=== PATIENT | female | born 1975 ===

== ENCOUNTER 2024-11-17 09:15 | Observation (INO) ==
--- NOTE | 2024-11-06 12:49 | Anesthesiology Consultation ---
Date of Service November 06, 2024 Assessment & Plan (1) Encounter for pre-operative examination: Chart Review Chart Review: Acceptable Risk for Surgery and Patient NOT seen in Pre Admission Testing -EKG to be completed AM of surgery (age>50; not ordered preop) Infectious Disease screening: Per PAT nursing assessment on 11/06/24, No known infectious disease contacts in past 10 days or current infectious disease symptoms. No recent travel outside the country. History Surgery Operation Date: 11/17/24 10:20 Proposed Procedures p Robotic Assisted Sacral Colpopexy - Jamie Suarez MD Height/Weight Height: 5 ft 5 in Weight: 104.326 kg Allergies Allergy/AdvReac Type Severity Reaction Status Date / Time morphine AdvReac Intermediate Vomiting Verified 11/06/24 09:32 Medications Home Medications Medication Instructions Recorded Confirmed Last Taken fluticasone propionate 50 2 spray intranasal DAILY PRN Nasal 02/09/19 11/06/24 Unknown mcg/actuation nasal Congestion spray,suspension (Flonase Allergy Relief) levothyroxine 25 mcg tablet 25 mcg PO QAM 02/09/19 11/06/24 Unknown famotidine 20 mg tablet 20 mg PO PM 11/06/24 11/06/24 Unknown ibuprofen 200 mg tablet 200 mg PO Q6H PRN Pain 11/06/24 11/06/24 Unknown pantoprazole 20 mg tablet,delayed 20 mg PO QAM 11/06/24 11/06/24 Unknown release Past Medical History Medical History (Updated 11/06/24 @ 12:57 by Evelyne Harrell PA-C) Congenital prolapsed rectum GERD (gastroesophageal reflux disease) Hiatal hernia Hypothyroidism Obesity Prolapse of vaginal wall Sensorineural hearing loss (SNHL) of left ear Sleep apnea no device > very mild per pt Past Surgical History Surgical History (Updated 11/06/24 @ 12:58 by Evelyne Harrell PA-C) H/O: hysterectomy History of arthroscopy of left shoulder History of colonoscopy History of esophagogastroduodenoscopy (EGD) History of tooth extraction Hx laparoscopic cholecystectomy Hx of hernia repair umblical Hx of unilateral oophorectomy Social History Smoking Status: Never smoker Do You Dip or Chew Tobacco: No Hx Alcohol Use: No Hx Substance Use: No substance use type: does not use Testing Laboratory Results 11/01/24: WBC: 7.71 H/H: 14.1/43.2 PLATELETS: 297 SODIUM: 142 POTASSIUM: 3.9 CHLORIDE: 104 CO2: 24 BUN: 15 CREATININE: 0.8 GLUCOSE: 69 10/04/24: UA: -Nitrite, -LE
--- NOTE | 2024-11-17 05:34 | History & Physical Report ---
Date of Service November 17, 2024 Assessment & Plan (1) Vaginal vault prolapse after hysterectomy: Plan: Reviewed therapy options of expectant management, pelvic floor physical therapy, pessary, or surgery. Since patient had previous vaginal surgery for prolapse that recurred, she elected for robotic sacral colpopexy, possible colporrhaphy, possible sling, and cystoscopy. Risks of infection, bleeding, injury, pain, mesh exposure, urinary incontinence, and retention were reviewed. All questions answered. Informed consent confirmed. Present on Admission?: Yes Admission and Anticipated Discharge Date Admission Date: 11/17/2024 Anticipated date of discharge: 11/18/24 History of Present Illness Chief Complaint: vaginal prolapse Primary Care Provider: Diana Winslow PA-C Myriam Torres is a 49 year old female who complains of prolapse. Referred by Anjana Armstrong PA-C. Two months ago, on feet all day when baking cookies. Noted a bulge and something was out. Never noticed before. Now feels bulge all the time, is uncomfortable to sit. Patient is s/p TVH with possible anterior colporrhaphy for prolapse (noel 2012, no records available). Has also tried a pessary in the past for prolapse during a and does not wish to try again. Allergies Allergy/AdvReac Type Severity Reaction Status Date / Time morphine AdvReac Intermediate Vomiting Verified 11/17/24 09:38 Home Medications Medication Instructions Recorded Confirmed Type fluticasone propionate 50 2 spray intranasal DAILY PRN Nasal 02/09/19 11/17/24 History mcg/actuation nasal Congestion spray,suspension (Flonase Allergy Relief) levothyroxine 25 mcg tablet 25 mcg PO QAM 02/09/19 11/17/24 History famotidine 20 mg tablet 20 mg PO PM 11/06/24 11/17/24 History ibuprofen 200 mg tablet 200 mg PO Q6H PRN Pain 11/06/24 11/17/24 History pantoprazole 20 mg tablet,delayed 20 mg PO QAM 11/06/24 11/17/24 History release Past Med/Surg History Problem List Vaginal vault prolapse after hysterectomy Encounter for pre-operative examination Medical History Obesity 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 Hiatal hernia GERD (gastroesophageal reflux disease) Sleep apnea no device > very mild per pt Sensorineural hearing loss (SNHL) of left ear Hypothyroidism Surgical History History of arthroscopy of left shoulder Hx laparoscopic cholecystectomy H/O: hysterectomy Hx of unilateral oophorectomy History of colonoscopy History of esophagogastroduodenoscopy (EGD) History of tooth extraction Hx of hernia repair umblical Social History Smoking Status: Never smoker Second Hand Exposure: No; Do You Dip or Chew Tobacco: No; Tobacco Cessation Education Requested by Patient: No Hx Alcohol Use: No Hx Substance Use: No Preferred Language: Zambian Communication Ability: Effective 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 Beliefs That Will Affect Care: None Current Living Situation: Spouse Other Information That Helps Us Care for You: No Feels Safe at Home: Yes Safety Concerns: Feels Safe At This Time Assistive Devices: Denture - Upper and Glasses Review of Systems Review of Systems: All systems reviewed & are unremarkable except as noted in HPI & below Physical Exam Constitutional: WD/WN, vitals as above Eyes: PERRL, conjunctivae normal, anicteric sclerae ENMT: external ear and nose normal, oropharynx normal Neck: trachea midline, no thyromegaly Respiratory: normal respiratory effort, lungs clear to auscultation Cardiovascular: RRR, no murmur, no edema Gastrointestinal (Abdomen): normal bowel sounds, soft, nontender, no hepatosplenomegaly Musculoskeletal: no cyanosis or clubbing, extremities motor strength 5/5 Skin: no rashes, warm and dry Psychiatric: A+Ox3, euthymic affect Results & Data Results & Data Laboratory Results 11/01/2024 labs Creatinine 0.8 Hgb 14.1 PLT 297 Code Status & VTE Plan VTE Prophylaxis Plan VTE Prophylaxis will be ordered: Yes
[~2024-11-17 09:15] MED LIST: DEXAMETHASONE SOD INJ 4 MG/ML VIAL ONE; KETOROLAC 30 MG/ML VIAL ONE; LIDOCAINE 2% 2 ML VIAL/AMP(20MG/ML) INFIL ONE; MIDAZOLAM HCL 1 MG/ML 2ML VIAL ONE; ONDANSETRON INJ 2 MG/ML 2 ML VIAL ONE; PROPOFOL IV EMULSION 10 MG/ML 20 ML VIAL IV ONE; ROCURONIUM BROMIDE 10 MG/ML 5 ML VIAL IV ONE; fentaNYL citrate PF 100 MCG/2 ML VIAL ONE
[2024-11-17] MEDS ORDERED: HYDROmorphone INJ 2 MG/ML SYR/VIAL IV PRN (09:41)
[2024-11-17] MEDS ORDERED: ATROPINE SULFATE 0.1 MG/ML 10ML SYR IV PRN (09:41)
[2024-11-17] MEDS ORDERED: ePHEDrine sulfate 50 MG/ML AMP IV PRN (09:41)
[2024-11-17] MEDS: LR 15ML/HR IV SCH (10:02)
[2024-11-17] MEDS: metroNIDAZOLE 500 MG/100 ML BAG IV SCH (10:27)
[2024-11-17] MEDS: SCOPOLAMINE 1 MG/72 HR TDSY PATCH TD STA (10:35)
--- NOTE | 2024-11-17 10:49 | Electrocardiogram Report ---
Test Reason : Blood Pressure : */* mmHG Vent. Rate : 74 BPM Atrial Rate : 74 BPM P-R Int : 182 ms QRS Dur : 74 ms QT Int : 392 ms P-R-T Axes : 62 44 60 degrees QTcB Int : 435 ms Normal sinus rhythm Low voltage QRS Borderline ECG No previous ECGs available Confirmed by Uziel Rutherford ([id number]) on 11/17/2024 10:48:54 AM Referred By: Jamie Suarez Confirmed By: Uziel Rutherford
[2024-11-17] MEDS: ceFAZolin 2000MG 2,000 MG/15 ML SYR IV SCH (11:23)
[2024-11-17] MEDS ORDERED: PHENYLEPHRINE 100MCG/ML 5ML SYR ONE (11:53)
[2024-11-17] MEDS ORDERED: SUGAMMADEX SODIUM 200 MG/2 ML VIAL IV ONE (12:13)
[2024-11-17] MEDS ORDERED: ROCURONIUM BROMIDE 10 MG/ML 5 ML VIAL IV ONE (12:28)
[2024-11-17] MEDS ORDERED: ePHEDrine sulfate 50 MG/5 ML SYR ONE (12:28)
[2024-11-17] MEDS ORDERED: fentaNYL citrate PF 100 MCG/2 ML VIAL ONE (13:27)
[2024-11-17] MEDS: LIDOCAINE 1%/EPINEPHRINE 1:100,000 50 ML VIAL ONE (13:28)
[2024-11-17] MEDS: PREMARIN VAG CRM 14 APPLN/30 GM TUBE ONE (13:29)
[2024-11-17] MEDS: BUPIVACAINE LIPOSOME 1.3% 266 MG/20 ML VIAL ONE (14:00)
[2024-11-17] MEDS: BUPIVACAINE 0.5 % 5 MG/1 ML MPF 30ML VIAL ONE (14:01)
[2024-11-17] MEDS ORDERED: ONDANSETRON INJ 2 MG/ML 2 ML VIAL IV PRN (14:16)
[2024-11-17] MEDS ORDERED: oxyCODONE/ACETAMINOPHEN 5mg/325mg TAB PO PRN (14:16)
[2024-11-17] MEDS ORDERED: ACETAMINOPHEN 325 MG TAB PO PRN (14:16)
--- NOTE | 2024-11-17 14:23 | Operative Report ---
Post Operative Report Pre & Post Diagnosis Operation Date: 11/17/24 10:50 Pre-Op Diagnosis: Vaginal vault prolapse after hysterectomy, Cystocele, Rectocele Post-Op Diagnosis: Vaginal vault prolapse after hysterectomy, Cystocele, Rectocele, DIMITRY, Urethral hypermobility I identified the patient and participated in the time-out.: Yes Procedure Operation Date: 11/17/24 10:50 Actual Procedures p Robotic Assisted Sacral Colpopexy, Posterior colporrhaphy, Sling, and Cystoscopy - Jamie Suarez MD Surgeon Jamie Suarez MD Sustainable Design Consultant Gia Saba PA-C Estimated Blood Loss 70 Findings See Below Cystocele, Rectocele, Vaginal Vault prolapse. Normal appearing Left Ovary, Surgically absent Right ovary. Omental adhesions to the umbilicus. Normal cystoscopy with excellent efflux of ureters bilaterally Fluids crystalloid Specimens vaginal mucosa Drains Ta catheter Anesthesia Type General Complications none Disposition Accompanied Patient To Recovery: Yes Disposition: Recovery Room Indications Symptomatic prolapse Description of Procedure Myriam Torres was identified in the preoperative area. The indications, alternatives, risks, and benefits of the surgical procedure were reviewed with the patient and her . Risks of infection, bleeding, injury, pain, mesh exposure, urinary retention, incontinence were reviewed. Alternatives of pessary, expectant management, and transvaginal surgery were reviewed. All questions answered. Informed consent confirmed. Patient was taken to the operating room and general anesthesia was administered by anesthesia service. Patient was placed in dorsal lithotomy position using Stanislav stirrups. Patient was prepped and draped in the usual sterile fashion. Time out was performed. A Ta catheter was placed for clear urine. A bulb syringe attached to a Hulk Tenaculum was placed in the vagina to elevate the vaginal vault. Because of a previous umbilical hernia repair with mesh, an 8 mm incision was made in the left upper quadrant. An 8 mm trocar with Optiview was placed through the incision and advanced with direct visualization through the fascia, peritoneum, and into the abdominal cavity. The abdomen was insufflated with CO2 gas. Inspection of the abdomen revealed omental adhesions to the umbilicus. On the left an 8 mm trocar were placed, on the right two 8 mm trocars were placed, all under direct visualization. The harmonic scalpel was used to lyse the adhesions with good hemostasis. The umbilical mesh border was well visualized. An 8 mm skin incision was above the umbilicus. An 8 mm trocar was placed through the supra-umbilical incision under direct visualization with attention to avoid the umbilical mesh. The patient was placed in moderate Trendelenburg position. The robot was docked. The ureters, bladder, and rectum was well visualized. The bladder was dissected off the anterior vaginal wall for 6 cm distally. The rectum was dissected off the posterior vaginal wall for 8 cm distally. The peritoneum over the sacrum was incised. The peritoneal incision was extended along the right angeles-colic gutter with excellent visualization of the right ureter and rectum. The Y mesh was then secured to the anterior and posterior vaginal beth with 2-0 V-lock suture. The tail end of the Y mesh was fixed to the anterior longitudinal ligament just below the sacral promontory with two interrupted sutures of CV-0 Muir-aron. The peritoneum was closed over the Y mesh with 2-0 V-lock suture. Excellent hemostasis was confirmed. The robot was undocked. The fascia at the umbilical incision was closed with 0 Vicryl using the chilango brandt fascial closure system. The trocars were removed and the pneumoperitoneum was allowed to recede. The incisions were closed with 4-0 Monocryl in a subcuticular fashion and dressed with surgical glue. Vaginally, excellent support of the anterior vaginal wall, apex, and proximal posterior vaginal wall wall was observed. However a distal rectocele remained. The vaginal mucosa overlying the distal rectocele was sharply dissected off the rectocele. The rectovaginal fascia was then imbricated with interrupted sutures of 2-0 Vicryl. A second imbrication layer was performed with 2-0 Vicryl in a mattress fashion. The excess vaginal mucosa was trimmed and sent to pathology as specimen. The incision was closed with 2-0 Vicryl in a running fasion. Cystoscopy was performed with a 17 cay[place] islander 70 deg cystoscope with 250 ml of irrigation fluid. Inspection of the bladder dome, trigone, and urethra did not reveal any lesions. Excellent efflux of ureters were demonstrated bilaterally. The cystoscope was removed and Crede maneuver confirmed urethral hypermobility and DIMITRY was demonstrated. The Ta was placed. The vaginal mucosa over the urethra was grasped with two Allis clamps and infiltrated with 0.5% lidocaine with epinephrine. A 1 cm incision was made with the scalpel. The periurethral tissue was dissected toward the pubic rami bilaterally. The Solyx sling was assembled. The needle introducer was placed through the incision advanced beyond the right pubic rami and inserted into the obturator internus muscle. The second sling introducer was placed thorough the incision and advanced beyond the left pubic rami and inserted into the obturator internus muscle. Cystoscopy was repeated, and no lesions were observed. The sling was appropriately tensioned. A Ta catheter was placed. The incision was closed with 2-0 Vicryl in a running fashion. Long acting bupivacaine was infiltrated into the obturator spaces. The vagina was irrigated and vaginal packing with estrogen cream was applied. A rectal exam was normal. All sponge lap and needle counts were correct x 2. Patient tolerated the procedure well, was extubated, awakened, and sent to recovery in good condition. . I attest to the content of the Intraoperative Record and any orders documented therein. Any exceptions are noted below. No qualified resident was available. Gia Saba PA-C, was necessary to perform the procedure as she provided assistance with patient positioning, draping,robotic docking and instrument exchange, retraction, irrigation, and wound closure
[2024-11-17] MEDS: HYDROmorphone INJ 1 MG/ML SYRINGE IV PRN (14:34)
[2024-11-17] MEDS: ONDANSETRON INJ 2 MG/ML 2 ML VIAL IV PRN (14:35)
[2024-11-17] MEDS: PROMETHAZINE HCL 6.25 MG in SODIUM CHLORIDE 0.9% 50 ML IV PRN (14:54)
[2024-11-17] MEDS: PROMETHAZINE HCL INJ 25 MG/ML 1 ML VIAL ONE (16:19)
[2024-11-17] MEDS: SODIUM CHLORIDE 0.9% 50 ML BAG ONE (16:20)
[2024-11-17] MEDS: CHECK SCOPOLAMINE PATCH PLACEMENT SCH (16:21)
--- NOTE | 2024-11-17 17:49 | Anesthesiology Progress Note ---
Date of Service November 17, 2024 Anesthesia Post Procedure Vital Signs Vital Signs: Temp Pulse Pulse Resp BP Pulse Ox O2 Del Method 11/17/24 15:25 83 14 124/84 100 Room Air 11/17/24 15:15 97.7 F 81 12 138/91 98 Room Air 11/17/24 15:05 82 12 130/82 99 Room Air 11/17/24 14:55 78 12 129/92 100 Room Air 11/17/24 14:45 83 13 130/83 98 Room Air 11/17/24 14:35 85 13 119/94 100 Room Air 11/17/24 14:25 92 H 20 141/78 H 100 Oxymask 11/17/24 14:17 97.9 F 92 H 18 131/95 98 Oxymask 11/17/24 10:03 97.7 F 77 18 137/91 99 Room Air O2 Flow Rate 11/17/24 15:25 11/17/24 15:15 11/17/24 15:05 11/17/24 14:55 11/17/24 14:45 11/17/24 14:35 11/17/24 14:25 5 11/17/24 14:17 5 11/17/24 10:03 Pain Intensity Abdomen: Pain Intensity: 1 Transfer of Care Handoff Completed per policy Notes Mental Status: alert / awake / arousable and participated in evaluation Patient Amnestic to Procedure: Yes Nausea / Vomiting: adequately controlled Pain: adequately controlled Airway Patency, RR, SpO2: stable & adequate BP & HR: stable & adequate Hydration State: stable & adequate Anesthetic Complications: no major complications apparent and Pt Satisfied with anesthetic care
[2024-11-17] MEDS: oxyCODONE/ACETAMINOPHEN 5mg/325mg TAB PO PRN (17:55)
--- OUTSIDE RECORDS SUMMARY | 2024-11-17 20:24 | External Medical Summary | Summary of Care ---
Author Name Unknown Organization [facility] Address [address] [place] [address] Phone [phone] Care Team Providers Care Internal Communications Writer Name Role Phone David Whitt MD Primary Care [facility] Reason for Referral * Evaluate & Treat - Unlimited Visits (Within 10 days (routine)) - Authorized Specialty Diagnoses / Procedures Referred By Pierre huizar Referred To Contact FLOOR COVERING LAYER - Urogynecology / Gynecology Urology Diagnoses Rectocele Anjana Logan PA-C [address] [place] [phone] Phone: tel: fax: Referral ID Status Reason Start Date Expiration Date Visits Requested Visits Authorized [id number] Authorized Specialty Services Required 09/21/[phone] Question Answer Referral Priority Within 10 days (routine) Where should this appointment be scheduled? [facility] What condition is the patient being referred for? Prolapse (dropped bladder, uterus, etc) Comments Rectocele. History of hysterectomy and bladder repair in the past. 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 180 Tablet 3 04/28/2024 11:55 AM EDT 4 Active Levothyroxine Sodium 50 MCG Oral Tablet (Levoxyl)Indication s:Acquired hypothyroidism Take 1 Tablet by mouth daily first thing in the morning. 90 Tablet 3 07/18/2024 12:25 PM EST 4 Active Pantoprazole Sodium 20 MG Oral Tablet Delayed Release (Protonix)Indicatio ns:Gastroesophageal reflux disease without esophagitis Take 1 Tablet by mouth daily as needed for Heartburn. 90 Tablet 3 09/19/2024 7:35 AM EDT 5 Active documented as of this encounter (statuses as of 09/30/2024) Active Problems Problem Noted Date Diagnosed Date Hypoglycemia 05/24/2024 Acquired hypothyroidism 07/26/2023 Hiatal hernia 06/16/2023 Witnessed episode of apnea 06/16/2023 Loud snoring 06/16/2023 Class 2 obesity with body ma ss index (BMI) of 35 to 39.9 without comorbidity 08/01/2022 Sudden-onset sensorineural hearing loss 02/07/20 19 Pulsatile tinnitus 02/06/2019 Thyromegaly 09/20/2014 Goiter 09/17/2014 documented as of this encounter (statuses as of 09/30/2024) Resolved Problems Problem Noted Date Diagnosed Date Resolved Date PARONYCHIA TOE, LEFT GREAT 02/04/2010 1 S/P EXCSION INGROWING NAIL 02/04/2010 1 documented as of this encounter (statuses as of 09/30/2024) Immunizations Name Administration Dates Next Due TDAP, Age 7 and older, IM (Adacel) 05/24/2024, documented as of this encounter Social History Tobacco Use Types Packs/Day Years Used Date Smoking Tobacco: Never Smokeless Tobacco: Never Alcohol Use Standard Drinks/Week Comments No 0 (1 standard drink = 0.6 oz pur e alcohol) PHQ-2 Answer Date Recorded PHQ Adult Total Score 0 05/24/2024 Hunger Vital Sign Answer Date Recorded Within the past 12 months, y ou worried that your food would run out before you got the money to buy more. Never true 11/25/19 24 Within the past 12 months, t he food you bought just didn't last and you didn't have money to get more. Never true 11/25/2023 Childcare Answer Date Recorded Do you feel overwhelmed with taking care of a child, family member or friend? No 11/25/2023 Does your family need help f inding childcare? (Household - for ages 0-17 years) Not on file 11/25/2023 Clothing Answer Date Recorded Have you been unable to get clothing when it was really needed? No 11/25/2023 Is your family able to get c lothes or diapers when needed? (Household - for ages 0-17 years) Not on file 11/25/2023 Personal Safety Answer Date Recorded Do you feel unsafe or have concerns for your saf ety? No 11/25/2023 Do you have concerns for you r family's safety? (Household - for ages 0-17 years) Not on file 11/25/2023 Utilities Answer Date Recorded Do you have trouble paying y our heating, water, or electric bill? No 11/25/2023 Is your family able to pay t he heat, water, or electric bill? (Household - for ages 0-17 years) Not on file 11/25/2023 Does your family have access to good internet? (Household - for ages 0-17 years) Not on file 11/25/2023 Employment Status Answer Date Recorded Are you unemployed or without regular income? No 11/25/2023 Does the household have a re gular source of income? (Household - for ages 0-17 years) Not on file 11/25/2023 Social Connections Answer Date Recorded How often do you feel lonely or isolated from th ose around you? Never 11/25/2023 Financial Resource Strain Answer Date R ecorded Do you have any trouble payi ng for your medications, or do you think you might in the future? No 11/25/2023 Does your family have troubl e paying for medicine? (Household - for ages 0-17 years) Not on file 11/25/2023 Transportation Needs Answer Date Record ed READ ONLY Do you have troubl e getting a ride to medical visits or work? Never True 11/25/2023 Does your family have a hard time getting a ride to doctors visits? (Household - for ages 0-17 years) Not on file 11/25/2023 Has lack of transportation k ept you from medical appointments, meetings, work, or from getting things needed for daily living? Check all that apply. (Adult - for ages 18 years and over) Not on file 11/25/2023 Do you (or your family) have trouble finding or paying for a ride (transportation)? (Household - for ages 0-17 years) Not on file 11/25/2023 Housing Stability Answer Date Recorded Do you currently live in a s helter or have no steady place to sleep at night? No 11/25/2023 READ ONLY Do you think you a re at risk of becoming homeless? No 11/25/2023 Does your family worry about paying for your home or becoming homeless? (Household - for ages 0-17 years) Not on file 0 11/25/2023 Are you homeless or worried that you might be in the future? (Adult - for ages 18 years and over) Not on file Are you (or your family) terence eless or worried that you might be in the future? (Household - for ages 0-17 years) Not on file Food Insecurity Answer Date Recorded Do you need food for this week? No 11/25/2023 Are you able to get enough f ood for your family? (Household - for ages 0-17 years) Not on file 11/25/2023 Does your family need food t his week? (Household - for ages 0-17 years) Not on file 11/25/2023 Do you always have enough fo od for your family? (Household - for ages 0-17 years) Not on file 11/25/2023 Food Insecurity Answer Date Recorded Within the past 12 months, y ou worried that your food would run out before you got the money to buy more. Never true 11/25/19 24 Within the past 12 months, t he food you bought just didn't last and you didn't have money to get more. Never true 11/25/2023 Do you need food for this week? No 11/25/2023 Comments No Sex and Gender Information Value Date Recorded Sex Assigned at Female 08/01/2022 8:32 AM EST Legal Sex Female 6:43 AM EST Gender Identity Female 08/01/2022 8:32 AM EST Sexual Orientation Straight 08/01/2022 8: 32 AM EST documented as of this encounter Last Filed Vital Signs Vital Sign Reading Time Taken Comments Blood Pressure 124/78 09/21/2024 9:59 AM EDT Pulse - - Temperature - - Respiratory Rate - - Oxygen Saturation - - Inhaled Oxygen Concentration - - Weight 105.2 kg (231 lb 14.4 oz) 09/21/2024 9:59 AM EDT Height - - Body Mass Index 38.59 07/26/2024 8:56 AM EST documented in this encounter Progress Notes * Anjana Logan PA-C - 09/21/2024 10:07 AM EDT Chief Complaint: The patient is a 49 year old female here for vaginal pressure. History of Present Illness: Patient has some vaginal pressure and fullness in the vagina. Patient reports that symptoms startedon Wednesday. Patient reports that she was baking cookies all day. Patient denies abdominal pain. Patient has some vaginal discomfort. Patient denies vaginal discharge, odor itching. Patient reports that she is urinating a little more frequently, but reports that she drinks a lot of water. Patient denies urinary incontinence. Patient denies dysuria. Patient reports partial hysterectomy about 11 years ago. Patient reports that just one ovary was left. Patient reports that she had a bladder procedure at that time as well. No history of abnormal pap smears. Medications: Current Outpatient Medications Medication Sig Dispense Refill Famotidine 20 MG Oral Tablet (Pepcid) Take 1 Tablet by mouth 2 times a day as needed for Heartburn.180 Tablet 3 Levothyroxine Sodium 50 MCG Oral Tablet (Levoxyl) Take 1 Tablet by mouth daily first thing in the morning. 90 Tablet 3 Pantoprazole Sodium 20 MG Oral Tablet Delayed Release (Protonix) Take 1 Tablet by mouth daily as needed for Heartburn. 90 Tablet 3 No current facility-administered medications for this visit. Allergies: Review of patient's allergies indicates: No Known Allergies Past Medical History: Diagnosis Date S/P EXCSION INGROWING NAIL 02/04/2010 Varicella without complication Chicken Pox Past Surgical History: Procedure Laterality Date COLONOSCOPY, DIAGNOSTIC (RECTUM) 09/01/2023 biopsies normal/COLONOSCOPY FLEXIBLE PROXIMAL DIAGNOSTIC performed by Tara Mathur MD at ENDOSCOPY [facility] EGD, FLEXIBLE, DIAGNOSTIC 11/13/2015 Jay Jay cuevas, HH, gastric polyps/ESOPHAGOGASTRODUODENOSCOPY (EGD), FLEXIBLE, TRANSORAL, DIAGNOSTICperformed by Cole Latham MD at ENDOSCOPY [facility] EGD, FLEXIBLE, DIAGNOSTIC 09/01/2023 biopsies normal/ESOPHAGOGASTRODUODENOSCOPY (EGD), FLEXIBLE, TRANSORAL, DIAGNOSTIC performed by Tara Mathur MD at ENDOSCOPY [facility] LAPAROSCOPY; CHOLECYSTECTOMY Cholecystectomy, Laproscopic REMOVAL OF OVARY(S) Oopherectomy,Uni/ SHOULDER ARTHROSCOPY SURGERY Left 11/18/2020 ARTHROSCOPY SHOULDER DISTAL CLAVICLE RESECTION performed by Luis Hyatt MD at OR [facility] VAGINAL HYSTERECTOMY Hysterectomy Vaginal Family History Problem Relation Name Age of Onset Cancer Mother colon Heart Disorder Father Hypertension Father Asthma None Diabetes None Hypertension Brother Renal Hx None Stroke None Thyroid Disorder None Review of Systems: Denies abdominal pain. Positive for vaginal pressure. Denies vaginal discharge, odor, or itching. Positive for vaginal discomfort. Denies dysuria. Positive for urinary frequency and urinary urgency. OBJECTIVE: BP 124/78 | Wt 105.2 kg (231 lb 14.4 oz) | BMI 38.59 kg/m² | BSA 2.2 m² General: awake, alert, and oriented x 3, normal affect, no acute distress External Genitalia/Vulva: anatomy is normal, no significant redness of labia, no discharge on vulvar tissues, ulcers are absent, no condylomatous lesions Vagina: vaginal tissues are not inflamed, normal color and texture, no abnormal vaginal discharge. Rectocele. Cervix: absent Uterus: absent Adnexa: no masses, non-tender bilaterally Roll Contour Grinder Documentation Patient offered clamp operator and declined. ASSESSMENT/PLAN: Rectocele (Primary) - UROGYNECOLOGY CLINIC REFERRAL OP (FEMALE ONLY) Recommended referral to Urogynecology for further evaluation and management. Patient agrees. Referral made. Counseled patient on precautions and when to contact the office. Answered patient's questions. Return to the office as needed. 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 [address] [place] [address] Jamie Suarez MD [address] [place] [address] 05/28/2025 9:00 AM EST Office Visit [address] [phone] La Sheth MD [address] [place] [phone] Scheduled Referrals Name Type Priority Associated Diagnoses Order Schedule UROGYNECOLOGY CLINIC REFERRAL OP (FEMALE ONLY) Referral Within 10 days (routine) Rectocele Ordered: 09/21/2024 Health Maintenance Due Date Last Done Comments Hepatitis B Vaccine (1 of 3 - 19+ 3-dose series) 1992 Mammogram 08/08/2015 08/08/2014 Cologuard 2018 Sigmoidoscopy 2018 Pneumococcal Vaccine: 50+ Years (1 of 1 - PCV) 2023 Zoster Vaccines (1 of 2) 2023 COVID-19 Vaccine ( season) 2024 Fecal Occult Blood Test 03/05/2024 03/05/2023, 03/05 Influenza Vaccine (FLU shot) (#1) 2024 TSH 05/17/2025 05/17/2024, 06/04, 08/01/2022, Additional history exists Depression Screening 05/24/2025 05/24/2024 Diabetes Screening 05/17/2027 05/17/2024, 1 07/17/2023, 2023, Additional history exists Lipid Panel 11/25/2027 11/24/2022, 11/03, 12/16/2020, Additional history exists Colonoscopy 09/01/2033 09/01/2023, 09/01/2023 Colorectal Cancer Screening 09/01/2033 DTap/Tdap Vaccines (3 - Td or Tdap) 05/24/2034 05/24/2024, 04/11/2010 HPV (Gardasil) Vaccine Aged Out No lo nger eligible based on patient's age to complete this topic MENINGOCOCCAL (MENACTRA/MENVEO) Aged Out No longer eligible based on patient's age to complete this topic Meningitis B Vaccine (Bexsero/Trumemba) Aged Out No longer eligible based on patient's age to complete this topic documented as of this encounter Medical Devices Not on filedocumented as of this encounter Visit Diagnoses Diagnosis Rectocele- Primary documented in this encounter Advance Directives * Full Code (Latest Code Status on File) Date Activated Date Inactivated Comments 11/18/2020 12:47 PM 11/18/2020 6:29 PM This order reflects the patients wishes and were consensually agreed upon. Care Teams Internal Communications Writer Relationship Specialty Start Date End Date David Whitt MD [address] [place] [phone] PCP - General Family Medicine 03/05/23 documented as of this encounter"
--- OUTSIDE RECORDS SUMMARY | 2024-11-17 20:24 | External Medical Summary | Summary of Care ---
Author Name Unknown Organization [facility] Address [address] [place] [address] Phone [phone] Care Team Providers Care Harvesting Supervisor Name Role Phone David Whitt MD [facility] Encounter Details Date Type Department Care Team (Late st Contact Info) Description 07/25/2024 Population Health External Data Unspecified Department Allergies No known active allergiesdocumented as of this encounter (statuses as of 07/25/2024) Medications Famotidine 20 MG Oral Tablet (Pepcid)Indications :Gastroesophageal reflux disease without esophagitis Take 1 Tablet by mouth 2 times a day as needed for Heartburn. 180 Tablet 3 04/28/2024 11:55 AM EDT 4 Active Pantoprazole Sodium 20 MG Oral Tablet Delayed Release (Protonix)Indicatio ns:Gastroesophageal reflux disease without esophagitis Take 1 Tablet by mouth daily as needed for Heartburn. 90 Tablet 1 06/27/2024 8:44 AM EST 4 Active Levothyroxine Sodium 50 MCG Oral Tablet (Levoxyl)Indication s:Acquired hypothyroidism Take 1 Tablet by mouth daily first thing in the morning. 90 Tablet 3 07/18/2024 12:25 PM EST 4 Active documented as of this encounter (statuses as of 07/25/2024) Active Problems Problem Noted Date Diagnosed Date Hypoglycemia 05/24/2024 Acquired hypothyroidism 07/26/2023 Hiatal hernia 06/16/2023 Witnessed episode of apnea 06/16/2023 Loud snoring 06/16/2023 Class 2 obesity with body ma ss index (BMI) of 35 to 39.9 without comorbidity 08/01/2022 Sudden-onset sensorineural hearing loss 02/07/20 19 Pulsatile tinnitus 02/06/2019 Thyromegaly 09/20/2014 Goiter 09/17/2014 documented as of this encounter (statuses as of 07/25/2024) Resolved Problems Problem Noted Date Diagnosed Date Resolved Date PARONYCHIA TOE, LEFT GREAT 02/04/2010 1 S/P EXCSION INGROWING NAIL 02/04/2010 1 documented as of this encounter (statuses as of 07/25/2024) Immunizations Name Administration Dates Next Due TDAP, [...] ages 0-17 years) Not on file 11/25/2023 Comments No Sex and Gender Information Value Date Recorded Sex Assigned at Female 08/01/2022 8:32 AM EST Legal Sex Female 6:43 AM EST Gender Identity Female 08/01/2022 8:32 AM EST Sexual Orientation Straight 08/01/2022 8: 32 AM EST documented as of this encounter Plan of Treatment Upcoming Encounters Date Type Department Care Team (Late st Contact Info) Description 07/26/2024 9:00 AM EST Office Visit Sleep Disorders Ctr [facility] [address] [place] [phone] Grace Marie CRNP [address] [place] [address] 05/28/2025 9:00 AM EST Office Visit Family [address] [phone] La Sheth MD [address] [place] [phone] Health Maintenance Due Date Last Done Comments Hepatitis B Vaccine (1 of 3 - 19+ 3-dose series) 1992 Mammogram 08/08/2015 08/08/2014 Cologuard 2018 Sigmoidoscopy 2018 Pneumococcal Vaccine: 50+ Years (1 of 1 - PCV) 2023 Zoster Vaccines (1 of 2) 2023 COVID-19 Vaccine ( - season) 2024 Fecal Occult Blood Test 03/05/2024 [...] Not on filedocumented as of this encounter Advance Directives * Full Code (Latest Code Status on File) Date Activated Date Inactivated Comments 11/18/2020 12:47 PM 11/18/2020 6:29 PM This order reflects the patients wishes and were consensually agreed upon. Care Teams Harvesting Supervisor Relationship Specialty Start Date End Date David Whitt MD [address] [place] [phone] PCP - General Family Medicine 03/05/23 documented as of this encounter
--- OUTSIDE RECORDS SUMMARY | 2024-11-17 20:24 | External Medical Summary | Summary of Care ---
Author Name Unknown Organization [facility] Address [address] [place] [address] Phone [phone] Care Team Providers Care Safety Teacher Name Role Phone David Whitt MD Primary Care P [email or web address] Reason for Visit * Reason Comments Pain Bilateral foot pain x 6 months-- can move between heel and side of foot. ++ tingling and burning sensations. Using Tylenol and Ibuprofen. Encounter Details Date Type Department Care Team ([facility] Contact Info) Description 09/15/2024 1:40 PM EDT Office Visit [address] [phone] June Watkins MD [address] [place] [id number] Pain in both feet*; Gastroesophageal reflux disease without esophagitis; Varicose veins of both lower extremities, unspecified whether complicated; Plantar fasciitis; BMI 38.0-38.9,adult Allergies No known active allergiesdocumented as of this encounter (statuses as of 09/15/2024) Medications Famotidine 20 MG Oral Tablet (Pepcid)Indication s:Gastroesophageal reflux disease without esophagitis Take 1 Tablet by mouth 2 times a day as needed for Heartburn. 180 Tablet 3 04/28/2024 11:55 AM EDT 4 Active Levothyroxine Sodium 50 MCG Oral Tablet (Levoxyl)Indicatio ns:Acquired hypothyroidism Take 1 Tablet by mouth daily first thing in the morning. 90 Tablet 3 07/18/2024 12:25 PM EST 4 Active Pantoprazole Sodium 20 MG Oral Tablet Delayed Release (Protonix)Indicati ons:Gastroesophage al reflux disease without esophagitis Take 1 Tablet by mouth daily as needed for Heartburn. 90 Tablet 3 5 Active Pantoprazole Sodium 20 MG Oral Tablet Delayed Release (Protonix)Indicati ons:Gastroesophage al reflux disease without esophagitis Take 1 Tablet by mouth daily as needed for Heartburn. 90 Tablet 1 06/27/2024 8:44 AM EST 4 09/16/19 25 Discontinu ed(Refill) documented as of this encounter (statuses as of 09/15/2024) Active Problems Problem Noted Date Diagnosed Date Hypoglycemia 05/24/2024 Acquired hypothyroidism 07/26/2023 Hiatal hernia 06/16/2023 Witnessed episode of apnea 06/16/2023 Loud snoring 06/16/2023 Class 2 obesity with body ma ss index (BMI) of 35 to 39.9 without comorbidity 08/01/2022 Sudden-onset sensorineural hearing loss 02/07/20 Pulsatile tinnitus 02/06/2019 Thyromegaly 09/20/2014 Goiter 09/17/2014 documented as of this encounter (statuses as of 09/15/2024) Resolved Problems Problem Noted Date Diagnosed Date Resolved Date PARONYCHIA TOE, LEFT GREAT 02/04/2010 1 S/P EXCSION INGROWING NAIL 02/04/2010 1 documented as of this encounter (statuses as of 09/15/2024) Immunizations Name Administration Dates Next Due TDAP, Age 7 and older, IM (Adacel) 05/24/2024, documented as of this encounter Social History Tobacco Use Types Packs/Day Years Used Date Smoking Tobacco: Never Smokeless Tobacco: Never Tobacco Cessation:Counseling Given: Not Answered Alcohol Use Standard Drinks/Week Comments No 0 [...] Sign Reading Time Taken Comments Blood Pressure 126/87 09/15/2024 1:48 PM EDT Pulse 80 09/15/2024 1:48 PM EDT Temperature 36.2 °C (97.2 °F) 09/15/2024 1:48 PM ED T Respiratory Rate 18 09/15/2024 1:48 PM EDT Oxygen Saturation - - Inhaled Oxygen Concentration - - Weight 105.8 kg (233 lb 3.2 oz) 09/15/2024 1:48 PM EDT Height - - Body Mass Index 38.81 07/26/2024 8:56 AM EST documented in this encounter Progress Notes * June Watkins MD - 09/15/2024 1:57 PM EDT Images from the original note were not included. Subjective Myriam Torres is a 49 year old female that presents for Pain (Bilateral foot pain x 6 months-- can move between heel and side of foot. ++ tingling and burning sensations. /Using Tylenol and Ibuprofen. ) Acute visit. Patient reports BL feet pain. Onset 5-6 months ago. No trauma. No change in physical activity level. Patient stands/walks a lot. Pain is almost constant, worse in the evening +/- tingling/burning Pain is better with rest. No redness/warmth/swelling Heel pain +/- No medication used. Other: needs medication refill Objective BP 126/87 | Pulse 80 | Temp 97.2 °F (36.2 °C) (Infrared ) | Resp 18 | Wt 233 lb 3.2 oz (105.8 kg)| BMI 38.81 kg/m² | BSA 2.2 m² BP Readings from Last 3 Encounters: 09/15/24 126/87 07/26/24 120/84 05/24/24 110/72 Wt Readings from Last 3 Encounters: 09/15/24 233 lb 3.2 oz (105.8 kg) 07/26/24 232 lb (105.2 kg) 05/24/24 231 lb 4.8 oz (104.9 kg) BMI Readings from Last 3 Encounters: 09/15/24 38.81 kg/m² 07/26/24 38.61 kg/m² 05/24/24 38.49 kg/m² Physical Exam Constitutional: General: She is not in acute distress. Appearance: Normal appearance. HENT: Head: Normocephalic and atraumatic. Right Ear: External ear normal. Left Ear: External ear normal. Nose: Nose normal. Mouth/Throat: Mouth: Mucous membranes are moist. Eyes: Conjunctiva/sclera: Conjunctivae normal. Cardiovascular: Rate and Rhythm: Normal rate and regular rhythm. Pulses: Normal pulses. Dorsalis pedis pulses are 2+ on the right side and 2+ on the left side. Posterior tibial pulses are 2+ on the right side and 2+ on the left side. Comments: BL LE varicosities Pulmonary: Effort: Pulmonary effort is normal. Breath sounds: Normal breath sounds. Abdominal: General: There is no distension. Musculoskeletal: Right lower leg: No edema. Left lower leg: No edema. Feet: Feet: Right foot: Skin integrity: Callus present. No erythema or warmth. Left foot: Skin integrity: Callus present. No erythema or warmth. Comments: tenderness Skin: General: Skin is warm and dry. Findings: No rash. Neurological: Mental Status: She is alert and oriented to person, place, and time. Psychiatric: Mood and Affect: Mood normal. Behavior: Behavior normal. Results reviewed : None Assessment and Plan Gastroesophageal reflux disease without esophagitis Orders: Pantoprazole Sodium 20 MG Oral Tablet Delayed Release (Protonix); Take 1 Tablet by mouth daily as needed for Heartburn. - refill sent, stable Pain in both feet - NSAIDs, ice , stretches/exercises, follow up with podiatry Varicose veins of both lower extremities, unspecified whether complicated - compression stocking, leg elevation Plantar fasciitis BMI 38.0-38.9,adult - weight loss, diet discussed Wrap-Up I spent a total of 20-29 minutes (exact time 25 mins) on the date of service in preparation, delivery, and documentation of the care provided to Myriam Torres excluding any time spent in the performance of separately billed services. documented in this encounter Nursing Notes * Mandi Sanders LPN - 09/15/2024 1:50 PM EDT The patient has been properly identified by confirmation of name and date of . Chief Complaint Patient presents with Pain Bilateral foot pain x 6 months-- can move between heel and side of foot. ++ tingling and burning sensations. Using Tylenol and Ibuprofen. Patient has been verbally educated on the need or importance of Breast Cancer Screening, Flu Vaccine, HepB Vaccine, Pneumococcal Vaccine, and Shingles Vaccine and has declined topic(s). documented in this encounter Plan of Treatment Upcoming Encounters Date Type Department Care Team ([facility] st Contact Info) Description 05/28/2025 9:00 AM EST Office Visit [address] [phone] La Sheth MD [address] [place] [phone] Health Maintenance Due Date Last Done Comments Hepatitis B Vaccine (1 of 3 - 19+ 3-dose series) 1992 Mammogram 08/08/2015 08/08/2014 Cologuard 2018 Sigmoidoscopy 2018 Pneumococcal Vaccine: 50+ Years (1 of 1 - PCV) 2023 Zoster Vaccines (1 of 2) 2023 COVID-19 Vaccine (1 - 2023- season) 2024 Fecal Occult Blood Test 03/05/2024 03/05/2023, 03/05 Influenza Vaccine (FLU shot) (#1) 2024 TSH 05/17/2025 05/17/2024, 06/04, 08/01/2022, Additional history exists Depression Screening 05/24/2025 05/24/2024 Diabetes Screening 05/17/2027 05/17/2024, 1 07/17/2023, 2023, Additional history exists Lipid Panel 11/25/2027 11/24/2022, 0510/2021, 12/16/2020, Additional history exists Colonoscopy 09/01/2033 09/01/2023, [...] as of this encounter Visit Diagnoses Diagnosis Pain in both feet- Primary Pain in limb Gastroesophageal reflux disease without esophagitis Esophageal reflux Varicose veins of both lower extremities, unspecified whether complicated Plantar fasciitis Plantar fascial fibromatosis BMI 38.0-38.9,adult Body Mass Index 38.0-38.9, adult documented in this encounter Advance Directives * Full Code (Latest Code Status on File) Date Activated Date Inactivated Comments 11/18/2020 12:47 PM 11/18/2020 6:29 PM This order reflects the patients wishes and were consensually agreed upon. Care Teams Safety Teacher Relationship Specialty Start Date End Date David Whitt MD [address] [place] [id number] PCP - General Family Medicine 03/05/23 documented as of this encounter"
--- OUTSIDE RECORDS SUMMARY | 2024-11-17 20:24 | External Medical Summary | Summary of Care ---
Author Name Unknown Organization [facility] Address [address] [place] [address] Phone [phone] Care Team Providers Care Recorder Helper Seismograph Name Role Phone David Whitt MD Primary Care P [email or web address] Reason for Visit * Reason Onset Date Comments Appointment 10/01/2024 Encounter Details Date Type Department Care Team ([facility] st Contact Info) Description 10/01/2024 Telephone Gynecology/Obstetics [place] [address] [place] [phone] Anjana Logan PA-C [address] [place] [address] Appointment Allergies No known active allergiesdocumented as of this encounter (statuses as of 10/01/2024) Medications Famotidine 20 MG Oral Tablet (Pepcid)Indications [...] 90 Tablet 3 09/19/2024 7:35 AM EDT Active documented as of this encounter (statuses as of 10/01/2024) Active Problems Problem Noted Date Diagnosed Date Hypoglycemia 05/24/2024 Acquired hypothyroidism 07/26/2023 Hiatal hernia 06/16/2023 Witnessed episode of apnea 06/16/2023 Loud snoring 06/16/2023 Class 2 obesity with body ma ss index (BMI) of 35 to 39.9 without comorbidity 08/01/2022 Sudden-onset sensorineural hearing loss 02/07/20 Pulsatile tinnitus 02/06/2019 Thyromegaly 09/20/2014 Goiter 09/17/2014 documented as of this encounter (statuses as of 10/01/2024) Resolved Problems Problem Noted Date Diagnosed Date Resolved Date PARONYCHIA TOE, LEFT GREAT 02/04/2010 1 S/P EXCSION INGROWING NAIL 02/04/2010 1 documented as of this encounter (statuses as of 10/01/2024) Immunizations Name Administration Dates Next Due TDAP, [...] 11/25/2023 Does the household have a re lar source of income? (Household - for ages [...] AM EST documented as of this encounter Miscellaneous Notes * Telephone Encounter - Anjana Logan PA-Kaushal - 10/01/2024 5:03 PM EDT Please get patient scheduled for a sooner appointment with Urogynecology. Patient is having worsening and significant symptoms with rectocele. Thank you. documented in this encounter Plan of Treatment Upcoming Encounters Date Type Department Care Team (Late st Contact Info) Description 10/09/2024 9:00 AM EDT Office Visit Urogynecology Esteban Browning [address] [place] [address] Jamie Suarez MD [address] [place] [address] 05/28/2025 9:00 AM EST Office Visit Family [facility] [address] [place] [phone] La Sheth MD [address] [place] [phone] Health Maintenance Due Date Last Done [...] and were consensually agreed upon. Care Teams Recorder Helper Seismograph Relationship Specialty Start Date End Date David Whitt MD [address] [place] [address] [phone] PCP - General Family Medicine 03/05/23 documented as of this encounter
--- OUTSIDE RECORDS SUMMARY | 2024-11-17 20:24 | External Medical Summary | Summary of Care ---
Author Name Unknown Organization [facility] Address [address] [place] [address] Phone [phone] Care Team Providers Care Marble Setter Helper Name Role Phone David Whitt MD Primary Care [facility] Reason for Referral * Evaluate & Treat - Unlimited Visits (Within 10 days (routine)) - Authorized Specialty Diagnoses / Procedures Referred By Contarnulfo t Referred To Contact Sleep Medicine / Sleep Disorders Diagnoses Loud snoring Witnessed episode of apnea David Whitt MD [address] [place] [phone] Phone: tel: fax: Referral ID Status Reason Start Date Expiration Date Visits Requested Visits Authorized [id number] Authorized Specialty Services Required 4 2 2 Question Answer Referral Priority Within 10 days (routine) Where should this appointment be scheduled? [facility] SLEEP MED ADULT REFERRAL Sleep Apnea Testing and Management Does the patient snore and/or gasp at night or has been told they stop breathing at night? Yes, document patient's symptoms in progress note Comments [facility] Reason for Visit * Reason Onset Date Comments Status Check Go over labs Immunizations 05/24/2024 Encounter Details Date Type Department Care Team (Latest Contact Info) Description 05/24/2024 9:30 AM EST Office Visit [address] [phone] David Whitt MD [address] [place] [phone] Acquired hypothyroidism*; Hiatal hernia; Hypoglycemia; Gastroesophageal reflux disease, unspecified whether esophagitis present; Loud snoring; Witnessed episode of apnea; Screening for depression; Need for xehbyegngr-rypgtwo-rltw ussis (Tdap) vaccine; Screening for cardiovascular condition Allergies No known active allergiesdocumented as of this encounter (statuses as of 05/24/2024) Medications Famotidine 20 MG Oral Tablet (Pepcid)Indication s:Gastroesophageal reflux disease without esophagitis Take 1 Tablet by mouth 2 times a day as needed for Heartburn. 180 Tablet 3 04/28/2024 11:55 AM EDT 4 Active Pantoprazole Sodium 20 MG Oral Tablet Delayed Release (Protonix)Indicati ons:Gastroesophage al reflux disease without esophagitis Take 1 Tablet by mouth daily as needed for Heartburn. 90 Tablet 1 01/31/2024 5:24 PM EDT 4 Active Levothyroxine Sodium 50 MCG Oral Tablet (Levoxyl)Indicatio ns:Acquired hypothyroidism Take 1 Tablet by mouth daily first thing in the morning. 90 Tablet 3 4 Active Levothyroxine Sodium 50 MCG Oral Tablet (Levoxyl)Indicatio ns:Acquired hypothyroidism Take 1 Tablet by mouth daily first thing in the morning. 90 Tablet 3 04/28/2024 8:16 AM EDT 4 05/24/20 24 Discontinu ed(Refill) Levothyroxine Sodium 50 MCG Oral Tablet (Levoxyl)Indicatio ns:Acquired hypothyroidism Take 1 Tablet by mouth daily first thing in the morning. 90 Tablet 3 4 05/24/20 24 Discontinu ed(Refill) documented as of this encounter (statuses as of 05/24/2024) Active Problems Problem Noted Date Diagnosed Date Hypoglycemia 05/24/2024 Acquired hypothyroidism 07/26/2023 Hiatal hernia 06/16/2023 Witnessed episode of apnea 06/16/2023 Loud snoring 06/16/2023 Class 2 obesity with body ma ss index (BMI) of 35 to 39.9 without comorbidity 08/01/2022 Sudden-onset sensorineural hearing loss 02/07/20 19 Pulsatile tinnitus 02/06/2019 Thyromegaly 09/20/2014 Goiter 09/17/2014 documented as of this encounter (statuses as of 05/24/2024) Resolved Problems Problem Noted Date Diagnosed Date Resolved Date PARONYCHIA TOE, LEFT GREAT 02/04/2010 1 S/P EXCSION INGROWING NAIL 02/04/2010 1 documented as of this encounter (statuses as of 05/24/2024) Immunizations Name Administration Dates Next Due TDAP, [...] Sign Reading Time Taken Comments Blood Pressure 110/72 05/24/2024 9:29 AM EST Pulse 72 05/24/2024 9:29 AM EST Temperature 36.3 °C (97.4 °F) 05/24/2024 9:29 AM ES T Respiratory Rate 18 05/24/2024 9:29 AM EST Oxygen Saturation 96% 05/24/2024 9:29 AM EST Inhaled Oxygen Concentration - - Weight 104.9 kg (231 lb 4.8 oz) 05/24/2024 9:29 AM EST Height - - Body Mass Index 38.49 09/01/2023 8:05 AM EST documented in this encounter Patient Instructions * Patient Instructions* Mandi Sanders LPN - 05/24/2024 9:30 AM EST ~~PATIENT INSTRUCTIONS FOR TDAP VACCINE~~ Possible side effects of TDAP vaccine, (tetanus shot), are usually mild and can include: 1. Soreness or redness at injection site 2. Low grade fever 3. Body aches You may use a fever / pain reducing medication as needed for these symptoms. LET YOUR DOCTOR KNOW IMMEDIATELY IF YOU HAVE DIFFICULTY BREATHING OR SWALLOWING, EXPERIENCE ITCHINGOF FEET OR HANDS, HAVE SWELLING OF EYES, FACE OR INSIDE OF NOSE. documented in this encounter Progress Notes * David Whitt MD - 05/24/2024 9:47 AM EST Subjective: Myriam Torres is a 48 year old female. Chief Complaint Patient presents with Status Check Go over labs Immunizations Text in this note was generated using an ambient documentation service. I discussed the use of a device to record and summarize our discussion today. All persons present during the encounter consented to its use. HPI: History of Present Illness The patient, with a history of acid reflux and hiatal hernia, has been attempting to manage her symptoms with pantoprazole 20 mg daily and famotidine. She attempted to stop taking pantoprazole, replacing it with famotidine in the morning, which initially seemed successful. However, after a week, the symptoms returned, leading the patient to resume taking pantoprazole. She also experienced gas pains, which she described as being in her back and chest. The patient has been taking famotidine 20 mgonly in the evening. The patient also reported occasional episodes of hypoglycemia, with blood sugar levels dropping to 68 mg/dL, even when not fasting. These episodes were sometimes accompanied by feelings of dizziness and general discomfort, which improved after consuming sugar. The patient's has noticed some changes in her sleep patterns, suggesting possible sleep apnea. The patient has not previously been evaluated for this condition. The patient's thyroid function has been well controlled on levothyroxine 50 mcg, with no reported intolerance to cold or heat, bowel irregularities, chest pain, or heart racing. She has not reported any abdominal discomfort or urinary symptoms. The patient denied any feelings of depression or loss of interest in activities. She has declined the flu shot and has not reported any worsening of tinnitus. She has been managing her weight, although there has been a slight increase recently. PMH: Patient Active Problem List Diagnosis Goiter Thyromegaly Sudden-onset sensorineural hearing loss Pulsatile tinnitus Class 2 obesity with body mass index (BMI) of 35 to 39.9 without comorbidity Hiatal hernia Witnessed episode of apnea Loud snoring Acquired hypothyroidism Hypoglycemia Current Outpatient Medications Medication Sig Dispense Refill Famotidine 20 MG Oral Tablet (Pepcid) Take 1 Tablet by mouth 2 times a day as needed for Heartburn.180 Tablet 3 Pantoprazole Sodium 20 MG Oral Tablet Delayed Release (Protonix) Take 1 Tablet by mouth daily as needed for Heartburn. 90 Tablet 1 Levothyroxine Sodium 50 MCG Oral Tablet (Levoxyl) Take 1 Tablet by mouth daily first thing in the morning. 90 Tablet 3 No current facility-administered medications for this visit. Past Medical History: Diagnosis Date S/P EXCSION INGROWING NAIL 02/04/2010 Varicella without complication Chicken Pox Past Surgical History: Procedure Laterality Date COLONOSCOPY, DIAGNOSTIC (RECTUM) 09/01/2023 biopsies normal/COLONOSCOPY FLEXIBLE PROXIMAL DIAGNOSTIC performed by Tara Mathur MD at [facility] EGD, FLEXIBLE, DIAGNOSTIC 11/13/2015 Jay Jay cuevas, HH, gastric polyps/ESOPHAGOGASTRODUODENOSCOPY (EGD), FLEXIBLE, TRANSORAL, DIAGNOSTICperformed by Cole Latham MD at [facility]OSCOPY [facility] EGD, FLEXIBLE, DIAGNOSTIC 09/01/2023 biopsies normal/ESOPHAGOGASTRODUODENOSCOPY (EGD), FLEXIBLE, TRANSORAL, DIAGNOSTIC performed by Tara Mathur MD at [facility] LAPAROSCOPY; CHOLECYSTECTOMY Cholecystectomy, Laproscopic REMOVAL OF OVARY(S) Oopherectomy,Uni/ SHOULDER ARTHROSCOPY SURGERY Left 11/18/2020 ARTHROSCOPY SHOULDER DISTAL CLAVICLE RESECTION performed by Luis Hyatt MD at [facility] VAGINAL HYSTERECTOMY Hysterectomy Vaginal Review of patient's allergies indicates: No Known Allergies Family History Problem Relation Name Age of Onset Cancer Mother colon Heart Disorder Father Hypertension Father Asthma None Diabetes None Hypertension Brother Renal Hx None Stroke None Thyroid Disorder None Family Status Relation Status Mo Alive Fa Alive Sis Alive Sis Alive Sis Alive Bro Alive Bro Alive Bro Alive Bro Alive Jesús Alive Son Alive Son Alive Son Alive NONE (Not Specified) NONE (Not Specified) Bro (Not Specified) NONE (Not Specified) NONE (Not Specified) NONE (Not Specified) Social History Socioeconomic History Marital status: Spouse name: Not on file Number of children: Not on file Years of education: Not on file Highest education level: Not on file Occupational History Not on file Tobacco Use Smoking status: Never Smokeless tobacco: Never Vaping Use Vaping status: Never Used Substance and Sexual Activity Alcohol use: No Drug use: No Sexual activity: Yes Partners: Male Other Topics Concern Not on file Social History Narrative Not on file Social Needs Financial Resource Strain: Low Risk (11/25/2023) Financial Resource Strain Do you have any trouble paying for your medications, or do you think you might in the future? (Adult - for ages 18 years and over): No Does your family have trouble paying for medicine? (Household - for ages 0-17 years): Not on file Food Insecurity: No Food Insecurity (11/25/2023) Food Insecurity Do you need food for this week? (Adult - for ages 18 years and over): No Are you able to get enough food for your family? (Household - for ages 0-17 years): Not on file Does your family need food this week? (Household - for ages 0-17 years): Not on file Do you always have enough food for your family? (Household - for ages 0-17 years): Not on file Transportation Needs: No Transportation Needs (11/25/2023) Transportation Needs Do you have trouble getting a ride to medical visits or work? (Adult - for ages 18 years and over):Never True Does your family have a hard time getting a ride to doctors’ visits? (Household - for ages 0-17 years): Not on file Has lack of transportation kept you from medical appointments, meetings, work, or from getting things needed for daily living? Check all that apply. (Adult - for ages 18 years and over): Not on file Do you (or your family) have trouble finding or paying for a ride (transportation)? (Household - for ages 0-17 years): Not on file Social Connections: Socially Integrated (11/25/2023) Social Connections How often do you feel lonely or isolated from those around you? (Adult - for ages 18 years and over): Never Housing Stability: Low Risk (11/25/2023) Housing Stability Do you currently live in a intermediate or have no steady place to sleep at night? (Adult - for ages 18 years and over): No Do you think you are at risk of becoming homeless? (Adult - for ages 18 years and over): No Does your family worry about paying for your home or becoming homeless? (Household - for ages 0-17 years): Not on file Are you homeless or worried that you might be in the future? (Adult - for ages 18 years and over): Not on file Are you (or your family) homeless or worried that you might be in the future? (Household - for ages0-17 years): Not on file Objective: BP 110/72 | Pulse 72 | Temp 97.4 °F (36.3 °C) (Tympanic) | Resp 18 | Wt 231 lb 4.8 oz (104.9 kg) | SpO2 96% | BMI 38.49 kg/m² | BSA 2.19 m² Physical Exam Vitals and nursing note reviewed. Constitutional: Appearance: She is obese. She is not ill-appearing. HENT: Head: Normocephalic and atraumatic. Jaw: There is normal jaw occlusion. Right Ear: Tympanic membrane and ear canal normal. Left Ear: Tympanic membrane and ear canal normal. Nose: Nose normal. Mouth/Throat: Lips: Odell. Mouth: Mucous membranes are moist. Pharynx: Oropharynx is clear. No oropharyngeal exudate or posterior oropharyngeal erythema. Eyes: General: No scleral icterus. Conjunctiva/sclera: Conjunctivae normal. Pupils: Pupils are equal, round, and reactive to light. Cardiovascular: Rate and Rhythm: Normal rate and regular rhythm. Pulses: Normal pulses. Heart sounds: No murmur heard. Pulmonary: Effort: Pulmonary effort is normal. No respiratory distress. Breath sounds: Normal breath sounds. No wheezing, rhonchi or rales. Abdominal: General: Abdomen is flat. There is no distension. Palpations: Abdomen is soft. Tenderness: There is no abdominal tenderness. Musculoskeletal: General: No swelling or tenderness. Cervical back: Normal range of motion and neck supple. No rigidity or tenderness. No muscular tenderness. Right lower leg: No edema. Left lower leg: No edema. Lymphadenopathy: Cervical: No cervical adenopathy. Skin: General: Skin is warm and dry. Capillary Refill: Capillary refill takes less than 2 seconds. Findings: No rash. Neurological: General: No focal deficit present. Mental Status: She is oriented to person, place, and time. Psychiatric: Mood and Affect: Mood normal. Results for orders placed or performed in visit on 05/17/24 COMPREHENSIVE METABOLIC PANEL Result Value Ref Range BUN 12 6 - 20 mg/dL CREATININE 0.8 0.5 - 1.0 mg/dL EGFR >90 >=60 mL/min SODIUM 140 135 - 146 mmol/L POTASSIUM 4.0 3.5 - 5.1 mmol/L CHLORIDE 103 98 - 107 mmol/L CO2 25 22 - 32 mmol/L ANION GAP 12 7 - 15 mmol/L GLUCOSE 68 (L) 70 - 120 mg/dL Albumin 4.2 3.8 - 5.0 g/dL AST 18 10 - 35 U/L Alkaline Phosphatase 103 35 - 130 U/L Bilirubin, Total 0.2 <=1.2 mg/dL CALCIUM 9.4 8.4 - 10.2 mg/dL Protein 7.3 6.0 - 8.3 g/dL ALT 19 10 - 35 U/L TSH WITH FREE T4 IF INDICATED Result Value Ref Range TSH 2.49 0.27 - 4.20 uIU/mL HEMOGLOBIN A1C Result Value Ref Range Hemoglobin A1C 5.5 4.0 - 5.6 % Estimated Average Glucose 111 <126 mg/dL VITAMIN B12 Result Value Ref Range Vitamin B12 524 232 - 1,245 pg/mL MAGNESIUM Result Value Ref Range Magnesium 2.3 1.5 - 2.6 mg/dL CBC Result Value Ref Range WBC 7.55 4.00 - 10.80 K/uL RBC 5.03 3.85 - 5.15 M/uL HGB 14.2 12.0 - 15.3 g/dL HCT 45.7 (H) 36.0 - 45.2 % MCV 90.9 81.5 - 97.5 fL MCH 28.2 27.0 - 34.0 pg MCHC 31.1 32.0 - 36.0 g/dL RDW 13.4 11.5 - 15.5 % PLT 289 140 - 400 K/uL MPV 11.9 6.6 - 11.1 fL nRBCs 0 <=0 /100 WBCs DIFFERENTIAL, AUTOMATED Result Value Ref Range WBC 7.55 4.00 - 10.80 K/uL Neutrophils % 55.2 40.0 - 75.0 % Lymphocytes % 35.5 18.0 - 42.0 % Monocytes % 6.5 1.0 - 11.0 % Eosinophils % 1.2 0.0 - 6.0 % Basophils % 0.7 0.0 - 2.0 % Immature Granulocytes % 0.9 0.0 - 2.0 % Absolute Neutrophils 4.17 1.80 - 7.70 K/uL Absolute Lymphocytes 2.68 1.00 - 4.80 K/ul Absolute Monocytes 0.49 0.00 - 1.10 K/uL Absolute Eosinophils 0.09 0.00 - 0.70 K/uL Absolute Basophils 0.05 0.00 - 0.20 K/uL Absolute Immature Granulocytes 0.07 0.00 - 0.20 K/uL ASSESSMENT: Acquired hypothyroidism (Primary) - Levothyroxine Sodium 50 MCG Oral Tablet (Levoxyl); Take 1 Tablet by mouth daily first thing in the morning. - TSH WITH FREE T4 IF INDICATED; Future; Expected date: 05/14/2025 Hiatal hernia Hypoglycemia - HEMOGLOBIN A1C; Future; Expected date: 05/14/2025 Gastroesophageal reflux disease, unspecified whether esophagitis present Loud snoring - SLEEP MEDICINE REFERRAL OP Witnessed episode of apnea - SLEEP MEDICINE REFERRAL OP Screening for depression - DEPRESSION SCREENING PERFORMED Need for ksqusswayt-qymhirx-aadfdmnpb (Tdap) vaccine - TDAP (AGE 7 AND OLDER), ADACEL Screening for cardiovascular condition - LIPID PANEL WITH DIRECT LDL IF TG IS HIGH; Future; Expected date: 05/14/2025 Assessment & Plan Gastroesophageal Reflux Disease (GERD) with Hiatal Hernia Attempted to stop Pantoprazole, but symptoms returned. Currently taking Pantoprazole daily and Famotidine in the evening. -Consider taking Pantoprazole 20 mg every other day or on demand. -Continue Famotidine 20 mg in the evening. Hypothyroidism Well controlled on Levothyroxine 50mcg daily. -Refill Levothyroxine prescription. -Check thyroid function in May 2025. Hypoglycemia Occasional episodes of low blood sugar, but no evidence of diabetes or prediabetes on recent labs. -Advise to keep a source of quick sugar available in case of hypoglycemic episodes. -Check blood sugar levels in May 2025. Sleep Apnea Reports of snoring and possible apnea episodes. -Refer to Sleep Medicine at [facility] for formal testing. General Health Maintenance -Declined flu shot and shingles vaccine. -Check cholesterol in May 2025. -Schedule follow-up appointment with Dr. Sheth in one year. Follow Up: Return in about 1 year (around 05/24/2025), or if symptoms worsen or fail to improve, for Dr Sheth f/u chronic problems, schedule labs before next OV. | For: Dr Sheth f/laya chronic problems, schedule labs before next OV David Fernandes MD * Mandi Sanders LPN - 05/24/2024 9:30 AM EST The patient has been properly identified by confirmation of name and date of . Chief Complaint Patient presents with Status Check Go over labs Immunizations Patient has been verbally educated on the need or importance of Flu Vaccine and Tdap Vaccine and has declined topic(s). . Pre-Administration Time Out Procedure Performed: Yes Patient Identified (Ask Name/Date of ): Yes Does the patient have a fever greater than 101 degrees today? No Patient allergic to latex? No Has the patient ever fainted after receiving an injection? No VFC Stock: No Immunization(s) verified: Yes, Immunization Name: Flu, VIS Sheet(s) given: Yes Verified Side and Site: Yes Verified Shot(s) with Parent(s)/Patient: Yes documented in this encounter Nursing Notes * Mandi Sanders LPN - 05/24/2024 9:31 AM EST Patient has been verbally educated on the need or importance of Breast Cancer Screening and HepB Vaccine and has declined topic(s). documented in this encounter Plan of Treatment Upcoming Encounters Date Type Department Care Team (Late st Contact Info) Description 07/26/2024 9:00 AM EST Office Visit [facility] [address] [facility] [place] [phone] Grace Marie CRNP [address] [facility] [place] [id number] 05/28/2025 9:00 AM EST Office Visit [address] [phone] La Sheth MD [address] [place] [phone] Scheduled Orders Name Type Priority Associated Diagnoses Orde r Schedule LIPID PANEL WITH DIRECT LDL IF TG IS HIGH Lab Routine Screening for cardiovascular condition Expected: 05/14/2025, Expires: 05/24/2025 TSH WITH FREE T4 IF INDICATED Lab Routine Acquired hypothyroidism Expected: 05/14/2025 (Approximate), Expires: 05/24/2025 HEMOGLOBIN A1C Lab Routine Hypoglycemia Expected: 05/14/2025 (Approximate), Expires: 05/24/2025 Scheduled Referrals Name Type Priority Associated Diagnoses Orde r Schedule SLEEP MEDICINE REFERRAL OP Referral Within 10 days (routine) Loud snoring Witnessed episode of apnea Ordered: 05/24/2024 Health Maintenance Due Date Last Done Comments Hepatitis B Vaccine (1 of 3 - 19+ 3-dose series) 1992 Mammogram 08/08/2015 08/08/2014 Cologuard 2018 Sigmoidoscopy 2018 Zoster Vaccines (1 of 2) 2023 COVID-19 [...] on patient's age to complete this topic Pneumococcal Vaccine: Pediatrics (0 to 5 Years) and At-Risk Patients (6 to 64 Years) Aged Out No longer eligible based on patient's age to complete this topic documented as of this encounter Medical Devices Not on filedocumented as of this encounter Visit Diagnoses Diagnosis Acquired hypothyroidism- Primary Unspecified hypothyroidism Hiatal hernia Diaphragmatic hernia without mention of obstruction or gangrene Hypoglycemia Hypoglycemia, unspecified Gastroesophageal reflux disease, unspecified whether esophagitis present Loud snoring Witnessed episode of apnea Screening for depression Need for nmjtkymdje-iroxoed-cnccazyca (Tdap) vaccine Need for prophylactic vaccination with combined kscaeeokhq-tvglmkq-slkpxiutq (DTP) vaccine Screening for cardiovascular condition Screening for other and unspecified cardiovascular conditions documented in this encounter Advance Directives * Full Code (Latest Code Status on File) Date Activated Date Inactivated Comments 11/18/2020 12:47 PM 11/18/2020 6:29 PM This order reflects the patients wishes and were consensually agreed upon. Care Teams Marble Setter Helper Relationship Specialty Start Date End Date David Whitt MD [address] [place] [phone] PCP - General Family Medicine 03/05/23 documented as of this encounter"
--- OUTSIDE RECORDS SUMMARY | 2024-11-17 20:24 | External Medical Summary | Summary of Care ---
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 / Gynecology Urology Diagnoses Rectocele Anjana Logan PA-C [address] [place] [id number] Phone: tel: fax: Referral ID Status Reason Start Date Expiration Date Visits Requested Visits Authorized [id number] Authorized Specialty Services Required 09/21/[phone] Encounter Details Date Type Department Care Team (Latest Contact Info) Description 10/04/2024 10:00 AM EDT Office Visit Urogynecology [facility] [address] [facility] [place] [address] Jamie Suarez MD [address] [place] [address] Rectocele*; Cystocele, midline; Vaginal vault prolapse, posthysterectomy Allergies No known active allergiesdocumented as of this encounter (statuses as of 10/04/2024) Medications Famotidine 20 MG Oral Tablet (Pepcid)Indications [...] as of this encounter (statuses as of 10/04/2024) Active Problems Problem Noted Date Diagnosed Date Hypoglycemia 05/24/2024 Acquired hypothyroidism 07/26/2023 Hiatal hernia 06/16/2023 Witnessed episode of apnea 06/16/2023 Loud snoring 06/16/2023 Class 2 obesity with body ma ss index (BMI) of 35 to 39.9 without comorbidity 08/01/2022 Sudden-onset sensorineural hearing loss 02/07/20 19 Pulsatile tinnitus 02/06/2019 Thyromegaly 09/20/2014 Goiter 09/17/2014 documented as of this encounter (statuses as of 10/04/2024) Resolved Problems Problem Noted Date Diagnosed Date Resolved Date PARONYCHIA TOE, LEFT GREAT 02/04/2010 1 S/P EXCSION INGROWING NAIL 02/04/2010 1 documented as of this encounter (statuses as of 10/04/2024) Immunizations Name Administration Dates Next Due TDAP, [...] No 11/25/2023 Does the household have a [facility] source of income? (Household - for ages [...] Sign Reading Time Taken Comments Blood Pressure - - Pulse - - Temperature - - Respiratory Rate - - Oxygen Saturation - - Inhaled Oxygen Concentration - - Weight 105.4 kg (232 lb 6.4 oz) 10/04/2024 9:56 AM EDT Height - - Body Mass Index 38.67 07/26/2024 8:56 AM EST documented in this encounter Progress Notes * Jamie Suarez MD - 10/04/2024 11:15 AM EDT I saw and evaluated the patient today. I have reviewed the resident/fellow physician note and agree. I spent a total of 55 minutes coordinating, documenting, and providing care for this patient excluding time spent in the performance of separately billed services or time spent by another provider/QHP. * Jamie Suarez MD - 10/04/2024 10:53 AM EDT Urogynecology Surgical Checklist Patient Name: Myriam Torres Date of : 1975 Surgery Date: next Physician: Daniela Note Specialist Needed: No Location: [facility] Admission Type: 23 Hour Observation Anesthesia: General Anesthesia Consult Needed: No Pre-Operative Labs/Testing: CBC and BMP Pre-Surgical Interview (PATS): Phone Consent Done: No Medicaid Hysterectomy Consent Done: No COVID-19 Testing Date: n/a Surgery Cling (Education) Given to Patient: No Anticoagulation: No Stopped Anticoagulation: No Coagulation Clinic: No Medical Clearance Needed: No Cardiac Clearance Needed: No [facility] Teaching Complete: No Special Requests (case length variation from average, vendor, equipment): y mesh, cystoscopy Post-Operative Follow-Up: Telemed visit in 2 weeks and Appointment in 6 weeks Post-Operative Restrictions/Time Off: 6 weeks Procedures (CPT code): 74369746 - Robotic sacral colpopexy Diagnoses (ICD-10 code): N81.12 - Cystocele, lateral N81.6 - Rectocele N99.3 - Vesicovaginal prolapse, post-hysterectomy * Erick Diaz MD - 10/04/2024 9:49 AM EDT Myriam Torres is a 49 year old female here for evaluation of prolapse. Referred by Anjana Armstrong PA-C. Two weeks ago, on feet all day when baking cookies. Noted a bulge and something was out. Never noticed before. Now feels bulge all the time, is uncomfortable to sit. Had some pain on her side side last night, has not had a bowel movement in 1 day or two. Had 2 BM today and pain is improved. Patientis s/p TVH with possible anterior colporrhaphy for prolapse (noel 2012, no records available). Hasalso tried a pessary in the past for prolapse during a and does not wish to try again. Urinary: Patient denies leakage of urine. Daytime frequency: 5-6 voids/day Nocturia: 1 voids/night Urgency: denies Hesitancy/Straining: denies Incomplete Emptying: denies Postvoid dribbling: denies Hematuria: denies Reports denies UTIs in past year. Drinks: water, occasional tea Prolapse: Vaginal bulge: endorses Manual reduction: denies Splinting with voids: denies Splinting with defecation: denies Stooling: Frequency: about 1 stools/day, recently has been more frequent. No sick contacts or diet changes. Consistency: soft, but formed Constipation: denies Diarrhea: endorses, past 1-2 weeks Blood in Stool: denies, denies melena Bowel Regimen: dnies Menstrual: Patient is postmenopausal, s/p hysterectomy with about 2 years of hot flashes. Denies history of HRT. Denies history of abnormal cervical cancer screening. Last PAP: prior to hysterectomy Sexual: She is sexually active. She denies pain with intercourse. 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 S/p vaginal hysterectomy as well as "bladder procedure" (possibly anterior colporrhaphy). Patient reports indication was that "bladder dropped" and was uncomfortable. Did not have incontinence prior to surgery. Performed [facility], records not available for review. Medical History: Patient Active Problem List Diagnosis Goiter Thyromegaly Sudden-onset sensorineural hearing loss Pulsatile tinnitus Class 2 obesity with body mass index (BMI) of 35 to 39.9 without comorbidity Hiatal hernia Witnessed episode of apnea Loud snoring Acquired hypothyroidism Hypoglycemia Past Medical History: Diagnosis Date S/P EXCSION INGROWING NAIL 02/04/2010 Varicella without complication Chicken Pox Patient sees David Fernandes MD as her primary care provider. Surgical History: Past Surgical History: Procedure Laterality Date COLONOSCOPY, DIAGNOSTIC (RECTUM) 09/01/2023 biopsies normal/COLONOSCOPY FLEXIBLE PROXIMAL DIAGNOSTIC performed by Tara Mathur MD at ENDOSCOPY [facility] EGD, FLEXIBLE, DIAGNOSTIC 11/13/2015 Schatzki ring, HH, gastric polyps/ESOPHAGOGASTRODUODENOSCOPY (EGD), FLEXIBLE, TRANSORAL, DIAGNOSTICperformed by Cole Latham MD at ENDOSCOPY [facility] EGD, FLEXIBLE, DIAGNOSTIC 09/01/2023 biopsies normal/ESOPHAGOGASTRODUODENOSCOPY (EGD), FLEXIBLE, TRANSORAL, DIAGNOSTIC performed by Tara Mathur MD at [facility] LAPAROSCOPY; CHOLECYSTECTOMY Cholecystectomy, Laproscopic ME RPR UMBILICAL HRNA 5 YRSOR MORE REDUCIBLE Reports hernia repair x2, secod with mesh REMOVAL OF OVARY(S) Oopherectomy,Uni/ SHOULDER ARTHROSCOPY SURGERY Left 11/18/2020 ARTHROSCOPY SHOULDER DISTAL CLAVICLE RESECTION performed by Luis Hyatt MD at [facility] VAGINAL HYSTERECTOMY Hysterectomy Vaginal OB History No obstetric history on file. Allergies: Review of patient's allergies indicates: No Known Allergies Active Medications: Current Outpatient Medications Medication Sig Dispense [...] No current facility-administered medications for this visit. Social History: Social History Socioeconomic History Marital status: Tobacco Use Smoking status: Never Smokeless tobacco: Never Vaping Use Vaping status: Never Used Substance and Sexual Activity Alcohol use: No Drug use: No Sexual activity: Yes Partners: Male Social Needs Financial Resource Strain: Low Risk (11/25/2023) Financial Resource Strain Do you have any trouble paying for your medications, or do you think you might in the future? (Adult - for ages 18 years and over): No Food Insecurity: No Food Insecurity (11/25/2023) Food Insecurity Worried About Running Out of Food in the Last Year: Never true Ran Out of Food in the Last Year: Never true Do you need food for this week? (Adult - for ages 18 years and over): No Transportation Needs: No Transportation Needs (11/25/2023) Transportation Needs Do you have trouble getting a ride to medical visits or work? (Adult - for ages 18 years and over):Never True Social Connections: Socially Integrated (11/25/2023) Social Connections How often do you feel lonely or isolated from those around you? (Adult - for ages 18 years and over): Never Housing Stability: Low Risk (11/25/2023) Housing Stability Do you currently live in a detention or have no steady place to sleep at night? (Adult - for ages 18 years and over): No Do you think you are at risk of becoming homeless? (Adult - for ages 18 years and over): No Type of work: stays at home Activity level: rides stationary bike, but hasn't been recently. 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 Can perform heavy chores, can climb two flights of stairs without pain or SOB. Family History: Family History Problem Relation Name Age of Onset Cancer Mother colon Heart Disorder Father Hypertension Father Asthma None Diabetes None Hypertension Brother Renal Hx None Stroke None Thyroid Disorder None Weight 105.4 kg (232 lb 6.4 oz). Blood pressure %maurisio are not available for patients who are 18 years or older. Body mass index is 38.67 kg/m². PHYSICAL EXAM: Wt 105.4 kg (232 lb 6.4 oz) | BMI 38.67 kg/m² | BSA 2.2 m² General: No acute distress, well appearing female appropriate for her age. Obese body habitus. Neuro/Psych: AAOx3, no depression, no anxiety. Neck: No masses or asymmetry. CV: Warm, well-perfused. No swelling. Pulm: Non-labored breathing. Breast: Deferred. Abdomen: Non-distended, non-tender. Skin: No rashes, no lesions, no bruising. MSK: appropriate strength and range of motion. PELVIC EXAM: External Genitalia/Vulva: Anatomy is normal. No erythema, discharge, ulcers, condylomas, or other lesions of labia or vulvar tissues. [place]'s and Bartholin's glands are normal. Urethra: Normal, no lesions. Vagina: No erythema or lesions on vaginal tissues, normal pink rugae, no significant discharge present. Cervix: absent Uterus: absent Adnexa: No palpable masses. Rectal: Perianal skin normal, no lesions. DEMETRI deferred. POP-Q: Aa -1 Ba -1 C -2 GH 6 PB 2 TVL 8 Ap +1 Bp +1 D - Cough Stress Test: negative Pelvic Floor Muscle Strength ([place] Scale): Grade 1: Very weak contraction, a "flicker". Slight change in tension only. Likely limited/incorrect effort from patient. Pelvic Floor Muscle Tenderness Retropubic L: non-tender Retropubic R: non-tender Right OI: non-tender Right LA: non-tender Left LA: non-tender Left OI: non-tender PVR: 51 ml via bladder scan The following data points/ labs were reviewed: POC Urinalysis: unremarkable Results for orders placed or performed in visit on 10/04/24 URINALYSIS, POINT OF CARE Result Value Ref Range Color, Urine Yellow Light Yellow, Yellow Clarity, Urine Clear Clear Glucose, Urine Negative Negative mg/dL Bilirubin, Urine Negative Negative Ketone, Urine Negative Negative mg/dL Specific [place], Urine 1.015 1.003 - 1.030 Blood, Urine Trace-intact (A) Negative pH, Urine 6.0 5.0, 5.5, 6.0, 6.5, 7.0, 7.5 units Protein, Urine Negative Negative mg/dL Urobilinogen, Urine 0.2 0.2, 1.0 mg/dL Nitrite, Urine Negative Negative Esterase, Urine Negative Negative Records/ Imaging/ Results reviewed include: Office Note - 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 09/21/2024 CBC results Recent Labs Units 05/17/24 0821 WBC K/uL 7.55 HGB g/dL 14.2 HCT % 45.7* PLT K/uL 289 BMP results Recent Labs Units 05/17/24 0821 06/21/23 0839 SODIUM - [facility] mmol/L 140 139 POTASSIUM - [facility] mmol/L 4.0 4.3 CHLORIDE - [facility] mmol/L 103 103 CO2 - [facility] mmol/L 25 25 CREATININE - [facility] mg/dL 0.8 0.7 BUN - [facility] mg/dL 12 8 TSH, FSH/E2, Prolactin results Recent Labs Units 05/17/24 0821 06/21/23 0839 TSH - [facility] uIU/mL 2.49 1.91 HbA1c results Recent Labs Units 05/17/24 0821 HEMOGLOBIN A1C - [facility] % 5.5 Impression: This is a 49 year old female with: recurrent anterior, apical, 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 Patient is symptomatic and limi activity. Patient is without any history of DIMITRY and negative cough stress test, although occult DIMITRY is possible. Patient with large genital hiatus that may complicate pessary use. Reviewed possible surgical interventions including vaginal approach or laparoscopic-assisted mesh sacral colpopexy, with risks/benefits ofeach. She is non-diabetic, otherwise is in reasonably good health with good performance status and no cardiac history, although we reviewed that surgery is higher risk due to obesity. Also reviewed that prior oophorectomy and hernia surgery with mesh may complicate surgery due to adhesions, and mayrequire placing another incision site to enter abdomen away from the mesh. Rectocele (Primary) - CBC; Future; Expected date: 10/04/2024 - BASIC METABOLIC PANEL; Future; Expected date: 10/04/2024 Cystocele, midline - CBC; Future; Expected date: 10/04/2024 - BASIC METABOLIC PANEL; Future; Expected date: 10/04/2024 Vaginal vault prolapse, posthysterectomy - CBC; Future; Expected date: 10/04/2024 - BASIC METABOLIC PANEL; Future; Expected date: 10/04/2024 Other orders - URINALYSIS, POINT OF CARE Plan: - After review of options, patient elected to proceed with RA-SC, possible A/P repair. - No concurrent stress incontinence procedure planned. Will consent for possible MUS pending intraoperative evaluation (e.g. Crede maneuver). - We reviewed risk of infection, bleeding, injury to other organs, and mesh complications includingexposure, dyspareunia, infection, bowel obstruction. - Elected to have surgery at [facility] as it is closer to home. - Pre-operative testing: labwork ordered by Dr. Suarez. No cardiac evaluation indicated. - Case request placed by Dr. Suarez. Erick Diaz MD 10/04/2024 9:49 AM Patient was seen and examined with Dr. Suarez. documented in this encounter Nursing Notes * Anaid Fernandez MED ASSIST - 10/04/2024 9:50 AM EDT Pt presents to the clinic as a new pt. Patient denies leakage with C/L/S. Patient denies urgency. denies leakage following strong urge to void. Daytime frequency every 5-6 x Nocturia 1x nightly. Pt denies feeling of incomplete bladder emptying. BM regular Pt admits feeling of a bulge. Pt denies pain or bleeding with urination. PVR-51 documented in this encounter Plan of Treatment Upcoming Encounters Date Type Department Care Team ([facility] Contact Info) Description 05/28/2025 9:00 AM EST Office Visit [address] [id number] La Sheth MD [address] [place] [id number] Scheduled Orders Name Type Priority Associated Diagnoses Orde r Schedule CBC Lab Routine Rectocele Cystocele, midline Vaginal vault prolapse, posthysterectomy Expected: 10/04/2024, Expires: 10/04/2025 BASIC METABOLIC PANEL Lab Routine Rectocele Cystocele, midline Vaginal vault prolapse, posthysterectomy Expected: 10/04/2024, Expires: 10/04/2025 Health Maintenance Due Date Last Done Comments Hepatitis B Vaccine (1 of 3 - 19+ 3-dose series) 1992 Mammogram 08/08/2015 08/08/2014 Cologuard 2018 Sigmoidoscopy 2018 Pneumococcal Vaccine: 50+ Years (1 of 1 - PCV) 2023 Zoster Vaccines (1 of 2) 2023 COVID-19 Vaccine ( - season) 2024 Fecal Occult Blood Test 03/05/2024 03/05/2023, 03/05 Influenza Vaccine (FLU shot) (Season Ended) 2025 TSH 05/17/2025 05/17/2024, 06/04, 08/01/2022, Additional history [...] Not on filedocumented as of this encounter Procedures Procedure Name Priority Date/Time Associated Diagnosis Comments URINALYSIS, POINT OF CARE Routine 10/04/2024 10:04 AM EDT documented in this encounter Results * (ABNORMAL) URINALYSIS, POINT OF CARE (10/04/2024 10:04 AM EDT) Color, Urine Yellow Light Yellow, Yellow 10/04/2024 10:07 AM EDT [facility] Clarity, Urine Clear Clear 10/04/2024 10:07 AM EDT [facility] Glucose, Urine Negative Negative mg/dL 10/04/2024 10:07 AM EDT [facility] Bilirubin, Urine Negative Negative 10/04/2024 10:07 AM EDT [facility] Ketone, Urine Negative Negative mg/dL 10/04/2024 10:07 AM EDT [facility] Specific [place], Urine 1.015 1.003 - 1.030 10/04/2024 10:07 AM EDT [facility] Blood, Urine Trace-intact (A) Negative 10/04/2024 10:07 AM EDT [facility] pH, Urine 6.0 5.0, 5.5, 6.0, 6.5, 7.0, 7.5 units 10/04/2024 10:07 AM EDT [facility] Protein, Urine Negative Negative mg/dL 10/04/2024 10:07 AM EDT [facility] Urobilinogen, Urine 0.2 0.2, 1.0 mg/dL 10/04/2024 10:07 AM EDT [facility] Nitrite, Urine Negative Negative 10/04/2024 10:07 AM EDT [facility] Esterase, Urine Negative Negative 10/04/2024 10:07 AM EDT [facility] Urine 10/04/2024 10:0 4 AM EDT 10/04/2024 10:07 AM EDT us Jamie Suarez MD LAB POINT OF CARE TE ST DOCKED DEVICE UNSOLICITED RESULTS Final Result [facility] [address] [facility] [id number] documented in this encounter Visit Diagnoses Diagnosis Rectocele- Primary Cystocele, midline Vaginal vault prolapse, 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 Care Teams [facility] Relationship Specialty Start Date End Date David Whitt MD [address] [place] [phone] PCP - General Family Medicine 03/05/23 documented as of this encounter
--- OUTSIDE RECORDS SUMMARY | 2024-11-17 20:24 | External Medical Summary | Summary of Care ---
Author Name Unknown Organization [facility] Address [address] [place] [address] Phone [phone] Care Team Providers Care Shearing Shed Worker Name Role Phone David Whitt MD Primary Care P [facility] Reason for Visit * Reason Comments NEW PATIENT New sleep. Witnessed episode sleep apnea. Loud snoring. Witnessed gasping for air and stops breathing. * Evaluate & Treat - Unlimited Visits (Within 10 days (routine)) - Authorized Specialty Diagnoses / Procedures Referred By Contac t Referred To Contact Sleep Medicine / Sleep Disorders Diagnoses Loud snoring Witnessed episode of apnea David Whitt MD [address] [place] [address] Phone: tel: fax: Referral ID Status Reason Start Date Expiration Date Visits Requested Visits Authorized [id number] Authorized Specialty Services Required 4 2 2 Encounter Details Date Type Department Care Team (Latest Contact Info) Description 07/26/2024 9:00 AM EST Office Visit [facility] Disorders [facility] [address] [facility] [place] [phone] Grace Marie CRNP [address] [facility] [place] [id number] Observed sleep apnea*; Snoring; Sleep related gastroesophageal reflux disease Allergies No known active allergiesdocumented as of this encounter (statuses as of 07/26/2024) Medications Famotidine 20 MG Oral Tablet (Pepcid)Indications [...] as of this encounter (statuses as of 07/26/2024) Active Problems Problem Noted Date Diagnosed Date Hypoglycemia 05/24/2024 Acquired hypothyroidism 07/26/2023 Hiatal hernia 06/16/2023 Witnessed episode of apnea 06/16/2023 Loud snoring 06/16/2023 Class 2 obesity with body ma ss index (BMI) of 35 to 39.9 without comorbidity 08/01/2022 Sudden-onset sensorineural hearing loss 02/07/20 Pulsatile tinnitus 02/06/2019 Thyromegaly 09/20/2014 Goiter 09/17/2014 documented as of this encounter (statuses as of 07/26/2024) Resolved Problems Problem Noted Date Diagnosed Date Resolved Date PARONYCHIA TOE, LEFT GREAT 02/04/2010 1 S/P EXCSION INGROWING NAIL 02/04/2010 1 documented as of this encounter (statuses as of 07/26/2024) Immunizations Name Administration Dates Next Due TDAP, [...] Sign Reading Time Taken Comments Blood Pressure 120/84 07/26/2024 8:56 AM EST Pulse 74 07/26/2024 8:56 AM EST Temperature 36.3 °C (97.4 °F) 07/26/2024 8:56 AM ES T Respiratory Rate 16 07/26/2024 8:56 AM EST Oxygen Saturation 99% 07/26/2024 8:56 AM EST Inhaled Oxygen Concentration - - Weight 105.2 kg (232 lb) 07/26/2024 8:56 AM EST Height 165.1 cm (5' 5") 07/26/2024 8:56 AM EST Body Mass Index 38.61 07/26/2024 8:56 AM EST documented in this encounter Patient Instructions * Patient Instructions* Grace Marie CRNP - 07/26/2024 9:51 AM EST Saline gel (brand - AYR) - use at bedtime Biotene gel for the mouth documented in this encounter Progress Notes * Grace Marie CRNP - 07/26/2024 9:17 AM EST [facility]EP [facility]IC[facility] CONSULTATION Ms. Myriam Torres is a 49 year old female with history of hypothyroidism, hiatal hernia, GERD, BMI 38.6 seen at the request of David Fernandes MD for evaluation of possible sleep disorderedbreathing. Snoring, witnessed apnea and gasping arousals have been noted, worse when she was at herheaviest weight. She has had no prior sleep testing. Review of sleep symptoms ("+" indicates reports, "-" indicates denies): (+) Snoring- less currently (+) Witnessed apneas (+) Nocturnal choking or gasping (+) Nocturnal gastroesophageal reflux (+) Dry mouth on waking- flonase previously helped (-) Morning headaches- did previously (-) Non-restorative sleep (-) Daytime sleepiness or fatigue (-) Symptoms of restless legs syndrome (-) Abnormal sleep behaviors including dream enactment or sleep walking (-) Difficulty with memory or concentration Bedroom environment: Lives with and 4 kids (age 16 to 24). Sleeps in bed shared with . Side sleeper. Routine prior to bed: reads, coloring, painting Climate: cool Lighting: none Noise: none Pets: none Sleep Schedule: In bed 11p with lights out Time to fall asleep Within 5-10 minutes Nighttime awakenings/ Reason Once, restroom or from snoring Wake after sleep onset brief Awake Time/Alarm Perceived total sleep time Spontaneously 5-6a, hears others' alarms from 5-6 6-7 hours Naps 30 min nap most days [place] Sleepiness Scale Question 07/21/2024 10:02 PM EST - Filed by Patient What is the chance you will doze off in the following situation? Sitting and reading No chance of dozing Watching TV No chance of dozing Sitting inactive in a public place, such as a theater or meeting No chance of dozing As a passenger in a car for an hour without a break No chance of dozing Lying down to rest in the afternoon when circumstances permit High chance of dozing When sitting and talking to someone No chance of dozing When sitting quietly after lunch without alcohol No chance of dozing In a car, while stopped for a few minutes in traffic No chance of dozing Score (range: 0 - 24) 3 Functional Outcomes Of Sleep Question 07/21/2024 10:07 PM EST - Filed by Patient Please complete the following questions. Do you have difficulty concentrating because you are sleepy or tired? No Do you have difficulty remembering things because you are sleepy or tired? No Do you have difficulty operating a motor vehicle for short distances (less than 100 miles) because you become sleepy? No Do you have difficulty operating a motor vehicle for long distances (more than 100 miles) because you become sleepy? No Do you have difficulty visiting family or friends in their home because you become sleepy or tired?No Has your relationship with family, friends, or work colleagues been affected because you are sleepyor tired? No Do you have difficulty watching a movie or video because you become sleepy or tired? No Do you have difficulty being as active as you want to be in the evening because you are tired or sleepy? No Do you have difficulty being as active as you want to be in the morning because you are tired or sleepy? No Has your mood been affected because you are sleepy or tired? No Score (range: 10 - 40) 40 Medical History: Patient Active Problem List Diagnosis Goiter Thyromegaly Sudden-onset sensorineural hearing loss Pulsatile tinnitus Class 2 obesity with body mass index (BMI) of 35 to 39.9 without comorbidity Hiatal hernia Witnessed episode of apnea Loud snoring Acquired hypothyroidism Hypoglycemia Surgical History: Past Surgical History: Procedure Laterality Date COLONOSCOPY, DIAGNOSTIC (RECTUM) 09/01/2023 biopsies normal/COLONOSCOPY FLEXIBLE PROXIMAL DIAGNOSTIC performed by Tara Mathur MD at ENDOSCOPY [facility] EGD, FLEXIBLE, DIAGNOSTIC 11/13/2015 Schatzki ring, HH, gastric polyps/ESOPHAGOGASTRODUODENOSCOPY (EGD), FLEXIBLE, TRANSORAL, DIAGNOSTICperformed by Cole Latham MD at ENDOSCOPY [facility] EGD, FLEXIBLE, DIAGNOSTIC 09/01/2023 biopsies normal/ESOPHAGOGASTRODUODENOSCOPY (EGD), FLEXIBLE, TRANSORAL, DIAGNOSTIC performed by Tara Mathur MD at ENDOSCOPY [facility] LAPAROSCOPY; CHOLECYSTECTOMY Cholecystectomy, Laproscopic REMOVAL OF OVARY(S) Oopherectomy,Uni/ SHOULDER ARTHROSCOPY SURGERY Left 11/18/2020 ARTHROSCOPY SHOULDER DISTAL CLAVICLE RESECTION performed by Luis Hyatt MD at OR [facility] VAGINAL HYSTERECTOMY Hysterectomy Vaginal Denies history of upper airway, palate or jaw surgery Current Medications: Current Outpatient Medications Medication Sig Dispense Refill Levothyroxine Sodium 50 MCG Oral Tablet (Levoxyl) Take 1 Tablet by mouth daily first thing in the morning. 90 Tablet 3 Famotidine 20 MG Oral Tablet (Pepcid) Take 1 Tablet by mouth 2 times a day as needed for Heartburn.180 Tablet 3 Pantoprazole Sodium 20 MG Oral Tablet Delayed Release (Protonix) Take 1 Tablet by mouth daily as needed for Heartburn. 90 Tablet 1 No current facility-administered medications for this visit. Social History: Caffeine: rare Alcohol use: denies Nicotine use: denies Illicit drug use: denies Routine exercise: stationary bike 10-15 minutes 5 days Family History: Denies family history of sleep related disorders. Parents and some siblings snore, mother with witnessed apnea Review of Systems Constitutional: Negative for fatigue. HENT: Negative for congestion and postnasal drip. Dry mouth and sinuses Respiratory: Negative for shortness of breath. Cardiovascular: Negative for chest pain and leg swelling. Musculoskeletal: Positive for back pain. Negative for arthralgias and neck pain. Physical Exam: BP 120/84 | Pulse 74 | Temp 36.3 °C (97.4 °F) (Tympanic) | Resp 16 | Ht 1.651 m (5' 5") | Wt 105.2 kg (232 lb) | SpO2 99% | BMI 38.61 kg/m² | BSA 2.2 m² Constitutional: No acute distress, accompanied by Nose: Normal external appearance Oral: fair dentition, high arching hard palate, low soft palate, uvula normal, Mallampati 4, tonsils +1 Mandible: Retrognathia noted Neck: Circumference 12.5 inches Chest: Normal respiratory effort at rest, clear lung batres Cardiac: Regular rate and rhythm Neuro: Alert, oriented, fluent/clear speech Psych: Appropriate mood and affect Component Latest Ref Rng 05/17/2024 CO2 22 - 32 mmol/L 25 Impression/Recommendations: 49 year old female with history of hypothyroidism, hiatal hernia, GERD, BMI 38.6 who presents with snoring, witnessed apnea, nocturnal gasping arousals, and nocturnal GABY. Suspect JASON, STOP-Bang 4 (snoring, observed apneas, BMI > 35, and age > 50) -Discussed the pathophysiology, implications on short- and long-term health, diagnostic evaluation of JASON -Discussed the relationship between weight and sleep apnea. Sleep apnea may improve with weight loss. Weight loss may be more successful if sleep apnea treated. Offered referral to Nutrition & Weight Management. -Discussed sleep testing, both in lab and at home, as the next step in her evaluation Myriam has decided to work towards weight loss. She agrees to notify me if she decides to proceed with testing. DANITA Aguillon [facility] I spent a total of 40-54 minutes (exact time 47 mins) on the date of service in preparation, delivery, and documentation of the care provided to Myriam Torres excluding any time spent in the performance of separately billed services or time spent by another provider/QHP. documented in this encounter Nursing Notes * Charmaine Allred LPN - 07/26/2024 8:58 AM EST Chief Complaint Patient presents with NEW PATIENT New sleep. Witnessed episode sleep apnea. Loud snoring. Witnessed gasping for air and stops breathing. [place] Sleepiness Scale Question 07/21/2024 10:02 PM EST - Filed by Patient What is the chance you will doze off in the following situation? Sitting and reading No chance of dozing Watching TV No chance of dozing Sitting inactive in a public place, such as a theater or meeting No chance of dozing As a passenger in a car for an hour without a break No chance of dozing Lying down to rest in the afternoon when circumstances permit High chance of dozing When sitting and talking to someone No chance of dozing When sitting quietly after lunch without alcohol No chance of dozing In a car, while stopped for a few minutes in traffic No chance of dozing Score (range: 0 - 24) 3 Functional Outcomes Of Sleep Question 07/21/2024 10:07 PM EST - Filed by Patient Please complete the following questions. Do you have difficulty concentrating because you are sleepy or tired? No Do you have difficulty remembering things because you are sleepy or tired? No Do you have difficulty operating a motor vehicle for short distances (less than 100 miles) because you become sleepy? No Do you have difficulty operating a motor vehicle for long distances (more than 100 miles) because you become sleepy? No Do you have difficulty visiting family or friends in their home because you become sleepy or tired?No Has your relationship with family, friends, or work colleagues been affected because you are sleepyor tired? No Do you have difficulty watching a movie or video because you become sleepy or tired? No Do you have difficulty being as active as you want to be in the evening because you are tired or sleepy? No Do you have difficulty being as active as you want to be in the morning because you are tired or sleepy? No Has your mood been affected because you are sleepy or tired? No Score (range: 10 - 40) 40 Flu Vaccine Questionnaire Question 07/21/2024 10:08 PM EST - Filed by Patient Get your flu shot at your upcoming appointment. Please select one of the options below. I don't want the flu shot Travel Screening Question 07/26/2024 8:52 AM EST - Filed by Patient Do you have any of the following new or worsening symptoms? None of these Have you recently been in contact with someone who was sick? No / Unsure Neck: 12.5". documented in this encounter Plan of Treatment Upcoming Encounters Date Type Department Care Team ([facility] st Contact Info) Description 05/28/2025 9:00 AM EST Office Visit Family [address] [phone] La Sheth MD [address] [place] [phone] Scheduled Referrals Name Type Priority Associated [...] Additional history exists Lipid Panel 11/25/2027 11/24/2022, 05/10/2021, 12/16/2020, Additional history exists Colonoscopy 09/01/2033 09/01/2023, [...] as of this encounter Visit Diagnoses Diagnosis Observed sleep apnea- Primary Unspecified sleep apnea Snoring Other dyspnea and respiratory abnormality Sleep related gastroesophageal reflux disease Esophageal reflux documented in this encounter Advance Directives * Full Code (Latest Code Status on File) Date Activated Date Inactivated Comments 11/18/2020 12:47 PM 11/18/2020 6:29 PM This order reflects the patients wishes and were consensually agreed upon. Care Teams Shearing Shed Worker Relationship Specialty Start Date End Date David Whitt MD [address] [place] [phone] PCP - General Family Medicine 03/05/23 documented as of this encounter
--- OUTSIDE RECORDS SUMMARY | 2024-11-17 20:24 | External Medical Summary | Summary of Care ---
Author Name Unknown Organization [facility] Address [address] [place] [address] Phone [phone] Care Team Providers Care Sand Technician Name Role Phone David Whitt MD Primary Care P [facility] Encounter Details Date Type Department Care Team (Late st Contact Info) Description 10/10/2024 Orders Only PATIENT PORTAL DO NOT DELETE THIS DEPT USED BY [place] PATEL [phone] Allergies No known active allergiesdocumented as of this encounter (statuses as of 10/10/2024) Medications Famotidine 20 MG Oral Tablet (Pepcid)Indications :Gastroesophageal reflux disease without esophagitis Take 1 Tablet by mouth 2 times a day as needed for Heartburn. 180 Tablet 3 04/28/2024 11:55 AM EDT 4 Active Levothyroxine Sodium 50 MCG Oral Tablet (Levoxyl)Indication s:Acquired hypothyroidism Take 1 Tablet by mouth daily first thing in the morning. 90 Tablet 3 10/09/2024 10:46 AM EDT 4 Active Pantoprazole Sodium 20 MG Oral Tablet Delayed Release (Protonix)Indicatio ns:Gastroesophageal reflux disease without esophagitis Take 1 Tablet by mouth daily as needed for Heartburn. 90 Tablet 3 09/19/2024 7:35 AM EDT 5 Active documented as of this encounter (statuses as of 10/10/2024) Active Problems Problem Noted Date Diagnosed Date Hypoglycemia 05/24/2024 Acquired hypothyroidism 07/26/2023 Hiatal hernia 06/16/2023 Witnessed episode of apnea 06/16/2023 Loud snoring 06/16/2023 Class 2 obesity with body ma ss index (BMI) of 35 to 39.9 without comorbidity 08/01/2022 Sudden-onset sensorineural hearing loss 02/07/20 Pulsatile tinnitus 02/06/2019 Thyromegaly 09/20/2014 Goiter 09/17/2014 documented as of this encounter (statuses as of 10/10/2024) Resolved Problems Problem Noted Date Diagnosed Date Resolved Date PARONYCHIA TOE, LEFT GREAT 02/04/2010 1 S/P EXCSION INGROWING NAIL 02/04/2010 1 documented as of this encounter (statuses as of 10/10/2024) Immunizations Name Administration Dates Next Due TDAP, [...] Care Team (Late st Contact Info) Description 12/05/2024 8:00 AM EDT Telemedicine Urogynecology [facility] [address] [place] [address] Jamie Suarez MD [address] [place] [address] 12/27/2024 10:40 AM EDT Office Visit Urogynecology [facility] [address] [place] [address] Jamie Suarez MD [address] [place] [address] 05/28/2025 9:00 AM EST Office Visit [address] [phone] La Sheth MD [address] [place] [phone] Health Maintenance Due Date Last Done [...] and were consensually agreed upon. Care Teams Sand Technician Relationship Specialty Start Date End Date David Whitt MD [address] [place] [id number] PCP - General Family Medicine 03/05/23 documented as of this encounter
--- OUTSIDE RECORDS SUMMARY | 2024-11-17 20:24 | External Medical Summary | Summary of Care ---
Author Name Unknown Organization [facility] Address [address] [place] [address] Phone [phone] Care Team Providers Care Wool Grader Name Role Phone David Whitt MD Primary Care P rovider Reason for Visit * Reason Comments Outpatient Testing Encounter Details Date Type Department Care Team (Latest Contact Info) Description 11/01/2024 9:20 AM EDT Laboratory Laboratory Patient Service [address] [phone] [place], [address] [address] Rectocele; Cystocele, midline; Vaginal vault prolapse, posthysterectomy Allergies No known active allergiesdocumented as of this encounter (statuses as of 11/01/2024) Medications Famotidine 20 MG Oral Tablet (Pepcid)Indications [...] as of this encounter (statuses as of 11/01/2024) Active Problems Problem Noted Date Diagnosed Date Hypoglycemia 05/24/2024 Acquired hypothyroidism 07/26/2023 Hiatal hernia 06/16/2023 Witnessed episode of apnea 06/16/2023 Loud snoring 06/16/2023 Class 2 obesity with body ma ss index (BMI) of 35 to 39.9 without comorbidity 08/01/2022 Sudden-onset sensorineural hearing loss 02/07/20 Pulsatile tinnitus 02/06/2019 Thyromegaly 09/20/2014 Goiter 09/17/2014 documented as of this encounter (statuses as of 11/01/2024) Resolved Problems Problem Noted Date Diagnosed Date Resolved Date PARONYCHIA TOE, LEFT GREAT 02/04/2010 1 S/P EXCSION INGROWING NAIL 02/04/2010 1 documented as of this encounter (statuses as of 11/01/2024) Immunizations Name Administration Dates Next Due TDAP, [...] Description 12/05/2024 8:00 AM EDT Telemedicine Urogynecology [facility] [address] [place] [address] Jamie Suarez MD [address] [place] [address] 12/27/2024 10:40 AM EDT [facility] [address] [place] [address] Jamie Suarez MD [address] [place] [address] 05/28/2025 9:00 AM EST Office Visit [facility] [address] [place] [phone] La Sheth MD [address] [place] [phone] Pending Results Name Type Priority Associated Diagnoses Date /Time CBC Lab Routine Rectocele Cystocele, midline Vaginal vault prolapse, posthysterectomy 11/01/2024 8:26 AM EDT BASIC METABOLIC PANEL Lab Routine Rectocele Cystocele, midline Vaginal vault prolapse, posthysterectomy 11/01/2024 8:26 AM EDT Health Maintenance Due Date Last Done Comments [...] as of this encounter Visit Diagnoses Diagnosis Rectocele Cystocele, midline Vaginal vault prolapse, 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 Care Teams Wool Grader Relationship Specialty Start Date End Date David Whitt MD [address] [place] [address] PCP - General Family Medicine 03/05/23 documented as of this encounter
--- OUTSIDE RECORDS SUMMARY | 2024-11-17 20:24 | External Medical Summary | Summary of Care ---
Author Name Unknown Organization [facility] Address [address] [place] [address] Phone [phone] Care Team Providers Care Instrument Tech Name Role Phone David Whitt MD Primary Care P rebeccavider Reason for Visit * Reason Onset Date Comments Appointment 10/01/2024 Encounter Details Date Type Department Care Team ([facility] st Contact Info) Description 10/01/2024 Telephone Gynecology/Obstetics [place] [address] [place] [phone] Anjana Logan PA-C [address] [place] [address] Appointment Allergies No known active allergiesdocumented as of this encounter (statuses as of 10/02/2024) Medications Famotidine 20 MG Oral Tablet (Pepcid)Indications [...] as of this encounter (statuses as of 10/02/2024) Active Problems Problem Noted Date Diagnosed Date Hypoglycemia 05/24/2024 Acquired hypothyroidism 07/26/2023 Hiatal hernia 06/16/2023 Witnessed episode of apnea 06/16/2023 Loud snoring 06/16/2023 Class 2 obesity with body ma ss index (BMI) of 35 to 39.9 without comorbidity 08/01/2022 Sudden-onset sensorineural hearing loss 02/07/20 Pulsatile tinnitus 02/06/2019 Thyromegaly 09/20/2014 Goiter 09/17/2014 documented as of this encounter (statuses as of 10/02/2024) Resolved Problems Problem Noted Date Diagnosed Date Resolved Date PARONYCHIA TOE, LEFT GREAT 02/04/2010 1 S/P EXCSION INGROWING NAIL 02/04/2010 1 documented as of this encounter (statuses as of 10/02/2024) Immunizations Name Administration Dates Next Due TDAP, [...] encounter Miscellaneous Notes * Telephone Encounter - Sada Walton OSA - 10/02/2024 7:51 AM EDT Left detailed voicemail for pt regarding held appointment on WedOctober 04 at 10am. Requested pt return call to confirm or decline appointment. Kept old appointment as scheduled in case new appointmentdoes not work for pt. * Telephone Encounter - Anjana Logan PA-C - 10/01/2024 5:03 PM EDT Please get patient scheduled for a sooner appointment with Urogynecology. Patient is having worsening and significant symptoms with rectocele. Thank you. documented in this encounter Plan of Treatment Upcoming Encounters Date Type Department Care Team (Late st Contact Info) Description 10/04/2024 10:00 AM EDT Office Visit Urogynecology [facility] [address] [place] [address] Jamie Suarez MD [address] [place] [address] 10/09/2024 9:00 AM EDT Office Visit Urogynecology [facility] [address] [place] [address] Jamie Suarez MD [address] [place] [address] 05/28/2025 9:00 AM EST Office Visit [address] [phone] La Sheth MD [address] [place] [phone] Health Maintenance Due Date Last Done Comments Hepatitis B Vaccine (1 of 3 - 19+ 3-dose series) 1992 Mammogram 08/08/2015 08/08/2014 Cologuard 2018 Sigmoidoscopy 2018 Pneumococcal Vaccine: 50+ Years (1 of 1 - PCV) 2023 Zoster Vaccines (1 of 2) 2023 COVID-19 Vaccine (1 - season) 2024 Fecal Occult Blood Test [...] and were consensually agreed upon. Care Teams Instrument Tech Relationship Specialty Start Date End Date David Whitt MD [address] [place] [id number] PCP - General Family Medicine 03/05/23 documented as of this encounter
--- OUTSIDE RECORDS SUMMARY | 2024-11-17 20:24 | External Medical Summary ---
Author Name Unknown Address Unknown Organization [id number]:[place] [facility] [place] [facility] [address] [facility] [address] Laboratory Report Ordering Provider Test Date Status KAELA OWUSU 11/01/2024 08:26:48 Final Observation Date Value Abnormality Reference (Units ) Status BUN 11/01/2024 08:26:48 15 6-20 (mg/dL) Final Creatinine 11/01/2024 08:26:48 0.8 0.5-1.0 (mg/dL) Final Glomerular filtration rate/1.73 sq M.predicted [Volume Rate/Area] in Serum, Plasma or Blood by Creatinine-based formula (CKD-EPI) 11/01/2024 08:26:48 >90 >=60 (mL/min) Final eGFR is calculated based on the CKD-EPI 2020 equation. Sodium 11/01/2024 08:26:48 142 135-146 (m mol/L) Final Potassium 11/01/2024 08:26:48 3.9 3.5-5.1 (m mol/L) Final Cl 11/01/2024 08:26:48 104 98-107 (mm ol/L) Final CO2 11/01/2024 08:26:48 24 22-32 (mmo l/L) Final Anion gap 11/01/2024 08:26:48 14 7-15 (mmol /L) Final Glucose 11/01/2024 08:26:48 69 Below low normal 70- 120 (mg/dL) Final Calcium 11/01/2024 08:26:48 9.4 8.4-10.2 ( mg/dL) Final Performing Location [facility] [facility] [place] [address] [facility] [address]
--- OUTSIDE RECORDS SUMMARY | 2024-11-17 20:24 | External Medical Summary | Summary of Care ---
Author Name Unknown Organization [facility] Address [address] [place] [address] Phone [phone] Care Team Providers Care Cable Tool Driller Name Role Phone David Whitt MD Primary Care P [email or web address] Reason for Visit * Reason Onset Date Comments Appointment 10/01/2024 Encounter Details Date Type Department Care Team ([facility] st Contact Info) Description 10/01/2024 Telephone Gynecology/Obstetics [place] [address] [place] [address] Anjana Logan PA-C [address] [place] [address] Appointment Allergies No known active [...] Encounter - Sada Walton OSA - 10/02/2024 8:12 AM EDT Pt returned call and accepted sooner appointment offer. Cancelled appointment on 10/09 * Telephone Encounter - Sada Walton OSA [...] 10/04/2024 10:00 AM EDT Office Visit Urogynecology [facility] [address] [place] [address] Jamie Suarez MD [address] [place] [address] 05/28/2025 9:00 AM EST Office Visit [address] [phone] La Sheth MD [address] [place] [phone] Health Maintenance Due Date Last Done Comments [...] and were consensually agreed upon. Care Teams Cable Tool Driller Relationship Specialty Start Date End Date David Whitt MD [address] [place] [id number] PCP - General Family Medicine 03/05/23 documented as of this encounter
--- OUTSIDE RECORDS SUMMARY | 2024-11-17 20:24 | External Medical Summary ---
Author Name Unknown Address Unknown Organization K0G:LABORATORY [facility] [address] - [address] [place] [address] Laboratory Report Ordering Provider Test Date Status KAELA OWUSU 10/04/2024 10:04:00 Final Observation Date Value Abnormality Reference (Units ) Status Color of Urine by Auto 10/04/2024 10:04:00 Yellow Light Yellow, Yellow Final Clarity, Urine 10/04/2024 10:04:00 Clear Clear Final Glucose [Mass/volume] in Urine by Automated test strip 10/04/2024 10:04:00 Negative Negative (mg/dL) Final Bilirubin.total [Presence] in Urine by Automated test strip 10/04/2024 10:04:00 Negative Negative Final Ketones [Mass/volume] in Urine by Automated test strip 10/04/2024 10:04:00 Negative Negative (mg/dL) Final Specific gravity, Urine 10/04/2024 10:04:00 1.015 1.003-1.030 Final Hemoglobin [Presence] in Urine by Automated test strip 10/04/2024 10:04:00 Trace-intact Abnormal Negative Final pH, Urine 10/04/2024 10:04:00 6.0 5.0, 5.5, 6.0, 6.5, 7.0, 7.5 (units) Final Protein [Mass/volume] in Urine by Automated test strip 10/04/2024 10:04:00 Negative Negative (mg/dL) Final Urobilinogen, Urine 10/04/2024 10:04:00 0.2 0.2, 1.0 (mg/dL) Final Nitrite [Presence] in Urine by Automated test strip 10/04/2024 10:04:00 Negative Negative Final Leukocyte esterase [Presence] in Urine by Automated test strip 10/04/2024 10:04:00 Negative Negative Final [facility] [address] [place] [address]
--- OUTSIDE RECORDS SUMMARY | 2024-11-17 20:24 | External Medical Summary ---
Author Name Unknown Address Unknown Organization K01:[facility]ORY [facility] [place] - [facility] [address] [facility] [address] Laboratory Report Ordering Provider Test Date Status KAELA OWUSU 11/01/2024 08:26:48 Final Observation Date Value Abnormality Reference (Units ) Status WBC, Total 11/01/2024 08:26:48 7.71 4.00-10.80 (K/uL) Final RBC 11/01/2024 08:26:48 4.92 3.85-5.15 (M/uL) Final Hemoglobin 11/01/2024 08:26:48 14.1 12.0-15.3 (g/dL) Final HCT 11/01/2024 08:26:48 43.2 36.0-45.2 (%) Final MCV 11/01/2024 08:26:48 87.8 81.5-97.5 (fL) Final MCH 11/01/2024 08:26:48 28.7 27.0-34.0 (pg) Final MCHC 11/01/2024 08:26:48 32.6 32.0-36.0 (g/dL) Final RDW 11/01/2024 08:26:48 13.3 11.5-15.5 (%) Final Platelets 11/01/2024 08:26:48 297 140-400 (K/uL) Final MPV 11/01/2024 08:26:48 11.8 6.6-11.1 (fL) Final Nucleated erythrocytes/100 leukocytes [Ratio] in Blood by Automated count 11/01/2024 08:26:48 0 <=0 (/100 WBCs) Final Performing Location LABORATORY [facility] [place] - [address] [place] [facility] [address]
[2024-11-17] MEDS: FAMOTIDINE 20 MG TAB PO SCH (20:31)
[2024-11-18] MEDS: LEVOTHYROXINE SODIUM 25 MCG TABLET PO SCH (06:36)
--- NOTE | 2024-11-18 06:47 | Progress Note ---
Date of Service November 18, 2024 Assessment & Plan (1) Vaginal vault prolapse after hysterectomy: Plan: POD#1 s/p robotic sacral colpopexy, sling, and posterior colporrhaphy Patient is recovering well Ambulate, voiding trial with PVR bladder scan Discharge instructions reviewed, follow up in 2 weeks and 6 weeks All questions answered Discharge home today Present on Admission?: Yes Admission and Anticipated Discharge Date Admission Date: November 17, 2024 Anticipated date of discharge: 11/18/24 Subjective Feeling well. Denies SOB, CP, or nausea. Pain well controlled Review of Systems Review of Systems: All systems reviewed & are unremarkable except as noted in HPI & below Physical Exam Constitutional: WD/WN, vitals as above Eyes: PERRL, conjunctivae normal, anicteric sclerae ENMT: external ear and nose normal, oropharynx normal Neck: trachea midline, no thyromegaly Respiratory: normal respiratory effort, lungs clear to auscultation Cardiovascular: RRR, no murmur, no edema Gastrointestinal (Abdomen): normal bowel sounds, soft, nontender, no hepatosplenomegaly Musculoskeletal: no cyanosis or clubbing, extremities motor strength 5/5 Skin: no rashes, warm and dry Psychiatric: A+Ox3, euthymic affect Results & Data Vital Signs (Past 12 Hours) Vital Signs Temp Pulse Resp BP Pulse Ox O2 Del Method O2 Flow Rate 11/18/24 02:55 37.1 C 70 18 121/71 96 Nasal Cannula 1 11/17/24 22:26 37.5 C 88 18 110/67 93 Room Air 11/17/24 18:54 36.7 C 89 18 113/77 97 Room Air
[2024-11-18 06:49] LABS: Basophils # (auto) 0.01 K/uL (0.00-0.20); Basophils % (auto) 0.1 %; Hematocrit (blood only) 38.1 % (37.0-47.0); Immature Granulocytes # (auto) 0.04 K/uL (0.01-0.20); Immature Granulocytes % (auto) 0.3 %; Lymphocytes # (auto) 2.33 K/uL (1.20-3.40); Lymphocytes % (auto) 17.6 %; Mean Corpuscular Hgb Conc 34.1 g/dL (32.0-36.0); Mean Corpuscular Volume 84.9 fL (80.0-100.0); Mean Platelet Volume 11.5 fL (9.4-12.4); Monocytes # (auto) 0.87 K/uL (0.11-0.59); Monocytes % (auto) 6.6 %; Neutrophils # (auto) 9.99 K/uL (1.40-6.50); Neutrophils % (auto) 75.4 %; Platelet Count 289 K/uL (130-400); RDW Coefficient of Variation 13.7 % (11.5-14.5); RDW Standard Deviation 42.3 fL (36.4-46.3); Red Blood Count 4.49 M/uL (4.20-5.40); White Blood Count 13.24 K/ul (4.8-10.8)
--- NOTE | 2024-11-18 06:56 | Discharge Summary ---
Date of Service November 18, 2024 Admission HPI Per Admitting Provider Myriam Torres is a 49 year old female who complains of prolapse. Referred by Anjana Armstrong PA-C. Two months ago, on feet all day when baking cookies. Noted a bulge and something was out. Never noticed before. Now feels bulge all the time, is uncomfortable to sit. Patient is s/p TVH with possible anterior colporrhaphy for prolapse (noel 2012, no records available). Has also tried a pessary in the past for prolapse during a and does not wish to try again. Admission Exam (Per Admitting) Constitutional WD/WN, vitals as above Eyes PERRL, conjunctivae normal, anicteric sclerae ENMT external ear and nose normal, oropharynx normal Neck trachea midline, no thyromegaly Respiratory normal respiratory effort, lungs clear to auscultation Cardiovascular RRR, no murmur, no edema Gastrointestinal (Abdomen) normal bowel sounds, soft, nontender, no hepatosplenomegaly Musculoskeletal no cyanosis or clubbing, extremities motor strength 5/5 Skin no rashes, warm and dry Psychiatric A+Ox3, euthymic affect Discharge Data Procedures Performed Operation Date: 11/17/24 10:50 Actual Procedures p Robotic Assisted Sacral Colpopexy with Transvaginal Sling(Not Applicable) - Jamie Suarez MD Hospital Course (1) Vaginal vault prolapse after hysterectomy: POD#1 s/p robotic sacral colpopexy, sling, and posterior colporrhaphy Patient is recovering well Ambulate, voiding trial with PVR bladder scan Discharge instructions reviewed, follow up in 2 weeks and 6 weeks All questions answered Discharge home today
[2024-11-18 07:13] LABS: BUN Creatinine Ratio 18.1 (10-20); Calcium 8.8 mg/dl (8.6-10.3); Creatinine Clr Calc Pharmacy 111.1 ml/min; Potassium 4.1 mmol/L (3.5-5.1)
[2024-11-18] MEDS: IBUPROFEN 600 MG TAB PO PRN (07:38)
--- OUTSIDE RECORDS SUMMARY | 2024-11-18 09:10 | External Medical Summary | Summary of Care ---
Author Name Unknown Organization [facility] Address [address] [place] [address] Phone [phone] Care Team Providers Care Military Nurse Name Role Phone David Whitt MD Primary Care [facility] Reason for Visit * Reason Comments NEW PATIENT * Evaluate & Treat - Unlimited Visits (Within 10 days (routine)) - Authorized Specialty Diagnoses / Procedures Referred By Pierre huizar Referred To Contact FRAME CATCHER - Urogynecology / Gynecology Urology Diagnoses Rectocele Anjana Logan PA-C [address] [place] [phone] Phone: tel: fax: Referral ID Status Reason Start Date Expiration Date Visits Requested Visits Authorized [id number] Authorized Specialty Services Required 09/21/[phone] Encounter Details Date Type Department Care Team (Latest Contact Info) Description 10/04/2024 10:00 AM EDT Office Visit Urogynecology [facility] [address] [facility] [place] [address] Jamie Suarez MD [address] [place] [address] Rectocele*; Cystocele, midline; Vaginal vault prolapse, posthysterectomy Allergies No known active allergiesdocumented as of this encounter (statuses as of 11/18/2024) Medications Famotidine 20 MG Oral Tablet (Pepcid)Indications [...] 3 09/19/2024 7:35 AM EDT 5 Active oxyCODONE HCl 5 MG Oral Tablet (Oxy IR) Take 1 Tablet by mouth every 6 hours as needed for Pain, Severe. 5 Tablet 5 Active documented as of this encounter (statuses as of 11/18/2024) Active Problems Problem Noted Date Diagnosed Date Hypoglycemia 05/24/2024 Acquired hypothyroidism 07/26/2023 Hiatal hernia 06/16/2023 Witnessed episode of apnea 06/16/2023 Loud snoring 06/16/2023 Class 2 obesity with body ma ss index (BMI) of 35 to 39.9 without comorbidity 08/01/2022 Sudden-onset sensorineural hearing loss 02/07/20 19 Pulsatile tinnitus 02/06/2019 Thyromegaly 09/20/2014 Goiter 09/17/2014 documented as of this encounter (statuses as of 11/18/2024) Resolved Problems Problem Noted Date Diagnosed Date Resolved Date PARONYCHIA TOE, LEFT GREAT 02/04/2010 1 S/P EXCSION INGROWING NAIL 02/04/2010 1 documented as of this encounter (statuses as of 11/18/2024) Immunizations Immunization Administration Dates Next Due TDAP, Age 5 [...] : 1975 Surgery Date: next Physician: Daniela Steel Loader Needed: No Location: [facility] Admission Type: 23 Hour Observation Anesthesia: [...] Restrictions/Time Off: 6 weeks Procedures (CPT code): 27835041 - Robotic sacral colpopexy Diagnoses (ICD-10 code): [...] 9lbs 5oz Vaginal deliveries: 4 C/S: 0 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 S/p vaginal hysterectomy as well as "bladder procedure" (possibly anterior colporrhaphy). Patient reports indication was that "bladder dropped" and was uncomfortable. Did not have incontinence prior to surgery. Performed by Dr. Jordan at [facility] in 2013, records not available for [...] performed by Tara Mathur MD at ENDOSCOPY [facility] EGD, FLEXIBLE, DIAGNOSTIC 11/13/2015 Schatzki ring, HH, gastric polyps/ESOPHAGOGASTRODUODENOSCOPY (EGD), FLEXIBLE, TRANSORAL, DIAGNOSTICperformed by Cole Latham MD at [facility] EGD, FLEXIBLE, DIAGNOSTIC 09/01/2023 biopsies normal/ESOPHAGOGASTRODUODENOSCOPY (EGD), FLEXIBLE, TRANSORAL, DIAGNOSTIC performed by Tara Mathur MD at [facility] LAPAROSCOPY; CHOLECYSTECTOMY Cholecystectomy, Laproscopic [place] RPR UMBILICAL HRNA 5 YRSOR MORE REDUCIBLE Reports hernia repair x2, secod with mesh REMOVAL OF OVARY(S) Oopherectomy,Uni/ SHOULDER ARTHROSCOPY SURGERY Left 11/18/2020 ARTHROSCOPY SHOULDER DISTAL CLAVICLE RESECTION performed by Luis Hyatt MD at OR [facility] VAGINAL HYSTERECTOMY Hysterectomy Vaginal OB History No [...] Stability Do you currently live in a mcfp or have no steady place to sleep at night? (Adult - for ages 18 years and over): No Do you think you are at risk of becoming homeless? (Adult - for ages 18 years and over): No Type of work: stays at home Activity level: rides stationary bike, but hasn't been recently. 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 Can perform heavy chores, can climb two [...] other lesions of labia or vulvar tissues. [place]'s and [place]'s glands are normal. Urethra: Normal, [...] Stress Test: negative Pelvic Floor Muscle Strength ([place] Scale): Grade 1: Very weak contraction, a [...] Negative Ketone, Urine Negative Negative mg/dL Specific [place], Urine 1.015 1.003 - 1.030 Blood, Urine Trace-intact (A) Negative pH, Urine 6.0 5.0, 5.5, 6.0, 6.5, 7.0, 7.5 units Protein, Urine Negative Negative mg/dL Urobilinogen, Urine 0.2 0.2, 1.0 mg/dL Nitrite, Urine Negative Negative Esterase, Urine Negative Negative Records/ Imaging/ Results reviewed include: Office Note - BAND SCROLL SAW OPERATOR visit 09/21/2024 CBC results Recent Labs Units [...] obstruction. - Elected to have surgery at [facility] as it is closer to home. - [...] with urination. PVR-51 documented in this encounter Miscellaneous Notes * Addendum Note - Jamie Suarez MD - 11/18/2024 5:43 AM EDTAddended by: JAMIE SUAREZ on: 11/18/2024 05:43 AM Modules accepted: Orders documented in this encounter Plan of Treatment Upcoming Encounters Date Type Department Care Team (Late st Contact Info) Description 12/05/2024 8:00 AM EDT Telemedicine Urogynecology [facility] [address] [place] [address] Jamie Suarez MD [address] [place] [address] 12/27/2024 10:40 AM EDT [facility] [address] [place] [address] Jamie Suarez MD [address] [place] [address] 05/28/2025 9:00 AM EST Office Visit Family [facility] [address] [place] [address] La Sheth MD [address] [place] [phone] Health Maintenance Due Date Last Done [...] exists Depression Screening 05/24/2025 05/24/2024 Diabetes Screening 11/02/2027 11/01/2024, 1 07/17/2023, 05/17/2024, Additional history exists Lipid Panel 11/25/2027 11/24/2022, [...] documented in this encounter Results * (ABNORMAL) BASIC METABOLIC PANEL (11/01/2024 8:26 AM EDT) BUN 15 6 - 20 mg/dL 11/01/2024 11:26 PM EDT [facility] CREATININE 0.8 0.5 - 1.0 mg/dL 11/01/2024 11:26 PM EDT [facility] EGFR >90 >=60 mL/min 11/01/2024 11:26 PM EDT [facility] Comment:eGFR is calculated b ased on the CKD-EPI 2020 equation. SODIUM 142 135 - 146 mmol/L 11/01/2024 11:26 PM EDT [facility] POTASSIUM 3.9 3.5 - 5.1 mmol/L 11/01/2024 11:26 PM EDT [facility] CHLORIDE 104 98 - 107 mmol/L 11/01/2024 11:26 PM EDT [facility] CO2 24 22 - 32 mmol/L 11/01/2024 11:26 PM EDT [facility] ANION GAP 14 7 - 15 mmol/L 11/01/2024 11:26 PM EDT [facility] GLUCOSE 69(L) 70 - 120 mg/dL 11/01/2024 11:26 PM EDT [facility] CALCIUM 9.4 8.4 - 10.2 mg/dL 11/01/2024 11:26 PM EDT [facility] Blood Venous blood specimen / Unknown Venipuncture / Unknown 11/01/2024 8:26 AM EDT 11/01/2024 8:26 AM EDT us Jamie Suarez MD LAB BLOOD ORDERABLES Final Res ult [facility] [address] [place] [address] * CBC (11/01/2024 8:26 AM EDT) WBC 7.71 4.00 - 10.80 K/uL 11/01/2024 5:22 PM EDT [facility] RBC 4.92 3.85 - 5.15 M/uL 11/01/2024 5:22 PM EDT [facility] HGB 14.1 12.0 - 15.3 g/dL 11/01/2024 5:22 PM EDT [facility] HCT 43.2 36.0 - 45.2 % 11/01/2024 5:22 PM EDT [facility] MCV 87.8 81.5 - 97.5 fL 11/01/2024 5:22 PM EDT LABORATORY [facility] MCH 28.7 27.0 - 34.0 pg 11/01/2024 5:22 PM EDT [facility] MCHC 32.6 32.0 - 36.0 g/dL 11/01/2024 5:22 PM EDT [facility] RDW 13.3 11.5 - 15.5 % 11/01/2024 5:22 PM EDT LABORATORY [facility] PLT 297 140 - 400 K/uL 11/01/2024 5:22 PM EDT LAB[facility]ATORY [facility] MPV 11.8 6.6 - 11.1 fL 11/01/2024 5:22 PM EDT LABORATORY [facility] NRBCs 0 <=0 /100 WBCs 11/01/2024 5:22 PM EDT LABORATORY [facility] Blood Venous blood specimen / Unknown Venipuncture / Unknown 11/01/2024 8:26 AM EDT 11/01/2024 8:26 AM EDT us Jamie Suarez MD LAB BLOOD ORDERABLES Final Res ult LABORATORY [facility] [address] [place] [address] * (ABNORMAL) URINALYSIS, POINT OF CARE (10/04/2024 [...] AM EDT LABORATORY [place] [facility] Specific [place], Urine 1.015 1.003 - 1.030 10/04/2024 10:07 [...] Final Result LABORATORY [place] [address] [place] [address] documented in this encounter Visit Diagnoses Diagnosis Rectocele- Primary Cystocele, midline Vaginal vault prolapse, 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 Care Teams Military Nurse Relationship Specialty Start Date End Date David Whitt MD [address] [place] [address] [place] [address] PCP - General Family Medicine 03/05/23 documented as of this encounter
[2024-11-18] MEDS: PANTOprazole 40 MG TAB PO SCH (09:14)
[2024-11-18 09:43] VITALS: BP 117/76; RESP 16; TEMP 97.5; O2SAT 92
[2024-11-18 09:45] VITALS: PULSE 83
== END 2024-11-18 09:55 | disposition home or self-care (01) ==
LOC: 4E1 09:15 → ASU 09:15